=== PATIENT | male | born 1935 | race Caucasian/White ===

== ENCOUNTER 2017-06-17 09:17 | Inpatient (IN) | payer OTHER, MEDICARE ==
[~2017-06-17] VITALS: Ht 180.3 cm; Wt 95.8 kg
[~2017-06-17 09:17] MED LIST: ALEVE220 M2 PO; AMLODIPINE-ATO1 EAC8 PO; ATORVASTATIN CA40 MG PO; CARAC 0.5% TOP; CIPRO 500MG TA500 MG PO; CIPROFLOXACIN500 MG PO; EXELON1 EAC1 TOP; FLOMAX(MONOGRA0.4 MG PO; GOOD SENSE ASP325 MG PO; KEFLEX500 MG PO; LINZESS290 MC1 PO; LINZESS290 MCG PO; MASON NATURAL2000 IU PO; MOMETASONE FUROA0.11 TOP; MULTI-DAY VITA1 EACH PO; MULTIVITAMIN1 TAB PO; NORVASC 10MG10 MG PO; PRESERVISION AR1 SGL PO; PROS5 PO; RIVASTIGMINE 9.5 MG TOP; ROZEREM8 MG PO; SINEMET 25-1001 TAB PO; VITAMIN D50000 IU PO; [UNRECOGNIZED DRUG - OTHER] PO
[2017-06-17] MEDS ORDERED: EXELON1 EAC2 TOP (09:46)
[2017-06-17] MEDS ORDERED: CARBIDOPA-LEVO1 EAC7 PO (09:46)
[2017-06-17] MEDS ORDERED: ASPIRIN325 M2 PO (09:49)
[2017-06-17] MEDS ORDERED: CENTRAVITES 501 EACH PO (09:50)
[2017-06-17 09:52] LABS: ABSOLUTE BASOPHIL COUNT 0 /CUMM (0.0-0.2); ABSOLUTE EOSINOPHIL COUNT 0.1 /CUMM (0.0-0.7); ABSOLUTE GRANULOCYTE CT 12.2 /CUMM (1.4-6.5); ABSOLUTE LYMPH COUNT 1.1 /CUMM (1.2-3.4); ABSOLUTE MONOCYTE COUNT 0.9 /CUMM (0.10-0.60); BASOPHIL % 0.2 % (0.0-2.0); EOSINOPHIL % 0.4 % (0-5); HEMATOCRIT 38.5 % (42-52); MEAN CORPUSCULAR HGB 31.7 PG (27.0-31.0); MEAN CORPUSCULAR HGB CONC 34.6 G/DL (33.0-37.0); MEAN CORPUSCULAR VOLUME 91.6 FL (80.0-94.0); MEAN PLATELET VOLUME 8.2 FL (7.4-10.4); RBC DISTRIBUTION WIDTH 14.1 % (11.5-14.5); WHITE BLOOD CELL COUNT 14.3 /CUMM (4.8-10.8)
--- NOTE | 2017-06-17 09:52 | ED MVC/FALL/TRAUMA COMPLAINT ---
History of Present Illness General Chief Complaint: Fall Stated Complaint: BIBA FOR FALL Source: patient, family Exam Limitations: confusion Allergies Coded Allergies: tetanus toxoid, adsorbed (UNKNOWN 08/03/15) Reconcile Medications Amlodipine/Atorvastatin (Amlodipine-Atorvast 5-40 MG) 1 EACH TABLET 1 TAB PO DAILY HEART HEALTH (Reported) Aspirin (Aspirin*) 325 MG TABLET 1 TAB PO DAILY HEART HEALTH (Reported) Carbidopa/Levodopa (Carbidopa-Levodopa 25-100 Tab) 25 MG-100 MG TABLET 1 TAB PO TID HEART HEALTH (Reported) Multivitamin W/Iron, Minerals (Centravites 50 Plus) 1 EACH TABLET 1 TAB PO DAILY VITAMIN (Reported) Rivastigmine (Exelon) 13.3 MG/24 HOUR PATCH.TD24 1 PAT TOP DAILY PARKINSONS ( Reported) Triage Note: BIBA FROM HOME S/P FALL YESTERDAY AT 12PM. PER FAMILY PATIENT REFUSED TO GET UP AND REFUSED HELP BY OUTSIDE SERVICES. THIS AM VISITING NURSE/AID CAME TO THE HOUSE AND FOUND PATIENT FACEDOWN ON 2ND FLOOR OF HOME. PATIENT DENIES PAIN OR DISCOMFORT, HX OF PARKINSONS, A/O X3, HX OF FALLS. PATIENT CHANGED INTO HOSPITAL GOWN, VITALS OBTAINED, FALL PRECAUTIONS IN PLACE. AWAITING PROVIDER EVAL. Triage Nurses Notes Reviewed? yes Onset: Gradual Duration: constant Timing: recent history Severity: moderate Severity Numbers: 5 HPI: Patient is a 81-year-old male with a past medical history of diverticulitis with colon resection history, recurrent UTIs, multiple falls, Parkinson's, who presents emergency room with concerns of a 5 day history of productive yellow cough denies weakness and fatigue her patient lives in a private residence with and which they do receive home nursing care where states that while ambulating yesterday with a walker patient had a gradual nontraumatic fall to the hallway where he was unable to get up due to generalized weakness was unable to get patient up which nursing care evaluate patient at home today and called 911. Patient denies any pain however he does state that pain did occur in his abdomen approximate 3-5 days ago. Patient can tolerate by mouth with no change in symptoms last bowel movement was in the last 24 hours no blood no melena noted. Patient denies any chest pain arm pain jaw pain nausea vomiting headache Patient's was admitted in [place] in mid March for concerns of a fall delirium etiology from UTI. (Ramesh Santiago) Vital Signs & Intake/Output Vital Signs & Intake/Output Vital Signs Date Time Temp Pulse Resp B/P B/P Pulse O2 O2 Flow FiO2 Mean Ox Delivery Rate 06/17 1605 68 18 169/62 94 Room Air 06/17 1430 67 20 141/73 96 Room Air 06/17 1326 98.1 68 20 142/70 95 Room Air 06/17 1216 97.9 06/17 1111 71 20 141/66 99 Room Air 06/17 0948 Room Air Room Air 06/17 0920 98.1 76 16 144/67 95 Room Air (Emy GUZMAN,Jose Miguel Ramos) Past History Travel History Traveled to [place] past 21 day No Medical History Any Pertinent Medical History? see below for history Neurological: Parkinson's disease EENT: macular degeneration Cardiovascular: hypertension, hyperlipidemia Respiratory: NONE Gastrointestinal: diverticulitis Hepatic: NONE Renal: NONE Musculoskeletal: osteoarthritis Psychiatric: NONE Endocrine: NONE Blood Disorders: NONE Cancer(s): NONE WEDDING PLANNER/Reproductive: NONE Pneumonia Vaccine: 11/19/11 Influenza Vaccine: 11/18/14 Surgical History Surgical History: COLON RESECTION Psychosocial History Who do you live with Significant Other Services at Home None What is your primary language Prydeinig Tobacco Use: Quit >30 days ago ETOH Use: occasional use Illicit Drug Use: denies illicit drug use Family History Hx Contributory? No (Ramesh Santiago) Review of Systems Review of Systems Constitutional: Reports: see HPI, malaise, weakness. Eyes: Reports: no symptoms. Ears, Nose, Throat, Mouth: Reports: no symptoms. Respiratory: Reports: see HPI, cough. Cardiovascular: Reports: no symptoms. Gastrointestinal/Abdominal: Reports: no symptoms. Genitourinary: Reports: no symptoms. Musculoskeletal: Reports: no symptoms. Skin: Reports: no symptoms. Neurological/Psychological: Reports: no symptoms. All Other Systems: Reviewed and Negative (Ramesh Santiago) Physical Exam Physical Exam General Appearance: alert, lethargic Head: atraumatic Eyes: Bilateral: normal appearance, PERRL, EOMI. Ears, Nose, Throat, Mouth: hearing grossly normal, moist mucous membrane, Tympanic normal Neck: normal inspection, supple Respiratory: no respiratory distress, crackles Cardiovascular: regular rate/rhythm Gastrointestinal: normal bowel sounds, soft, non-tender Extremities: normal range of motion Neurologic/Psych: no motor/sensory deficits, awake, disoriented x 3 Skin: intact, normal color, warm/dry Core Measures ACS in differential dx? No CVA/TIA Diagnosis No Sepsis Present: No Sepsis Focused Exam Completed? No (Kathryn PALAFOX,Ramesh) Progress Differential Diagnosis: abd injury, C/T/L spine injury, ext injury, ICH, pelvis injury, pnemothorax, spinal cord injury Diagnostic Imaging: Viewed by Me: CT Scan. Radiology Impression: SEE COMMENTS Initial ED EK BPM,RBBB Comments: PATIENT: EDDIE LEAVITT PRESENT AGE: 81 PATIENT ACCOUNT NO: [id number] : 36 LOCATION: [facility] ORDERING PHYSICIAN: Ramesh PALAFOX SERVICE DATE: 06/17/17 EXAM TYPE: CAT - CT ABD & PELVIS W IV CONTRAST; CTA CHEST-PULMONARY EMBOLISM EXAMINATION: CTA CHEST CT ABDOMEN AND PELVIS WITH CONTRAST CLINICAL INFORMATION: Cough, PNA and hemoptysis. COMPARISON: CT abdomen and pelvis 08/03/2015. Chest x-ray 01/07/2015. TECHNIQUE: 5 mm thin axial and reformatted 3 mm thin coronal, sagittal and oblique images of the chest were obtained following IV 100 mL [address]iray 320. Subsequently CT abdomen and pelvis imaging was performed with 5 mm axial and reconstructed 3 mm thin sagittal and coronal images. DLP: 1572 mGy-cm FINDINGS: CHEST: There is good opacification of the pulmonary artery and its branches without any intraluminal filling defect or narrowing. The thoracic aorta is of normal caliber. Origins of thoracic aortic branches are widely patent except for mild atherosclerosis. The heart size is normal. There is moderate pericardial fat. No pericardial effusion seen. No abnormal size mediastinal or hilar lymph nodes. There are punctate calcifications in subcarinal space likely calcified lymph nodes. The thyroid lobes are symmetrical and normal. There is no pleural effusion or pleural thickening. Bilateral axilla are unremarkable. The chest wall appears unremarkable. The lungs are expanded without any acute pneumonic consolidation or mass. Focal dependent atelectatic changes are seen in both lower lobe posterior basal segments. No pulmonary nodule or mass seen. ABDOMEN AND PELVIS: There are gallstones. No gallbladder wall thickening seen. The liver, spleen and pancreas appear unremarkable. The common bile duct is not visualized and nondilated. There is moderate stool seen throughout the colon without significant distention. There is an anastomotic suture line within the high sigmoid colon with the lumen appearing patent. However there is moderate stool seen scattered throughout the entire colon including the sigmoid colon consistent with moderate scattered diverticuli seen throughout the colon without diverticulitis. The small bowel loops are nondilated. The stomach is nondistended. A small hiatal hernia is suspected. No free air or free fluid seen. There are mild atherosclerotic changes of abdominal aorta without aneurysmal dilatation. No retroperitoneal or pelvic large or bulky lymph nodes seen. The abdominal wall appears unremarkable. Imaging through the pelvis reveals unremarkable urinary bladder. There is moderate prostate enlargement encroaching through the base of the bladder. No bladder wall thickening noted. A prominent left inguinal hernia containing intraperitoneal fat is noted. Bone windows reveal moderate spondylosis lower dorsal spine. No lytic or sclerotic process seen. Mild bilateral facet joint hypertrophy seen at L3-L4 and L4-L5 disc levels. IMPRESSION: No evidence of aortic aneurysm or dissection. No lung nodule, mass or consolidation seen. Moderate constipation. The anastomotic site sigmoid/descending colon junction is widely patent. There is scattered colonic diverticuli without any diverticulitis. No bowel obstruction seen. Gallstones without wall thickening. No major change since 2015. DICTATED BY: Janneth GUZMAN,Seun DATE/TIME DICTATED:06/17/171227 EDUCATIONAL AIDE:DEMI DATE/TIME TRANSCRIBED:06/17/171227 CONFIDENTIAL, DO NOT COPY WITHOUT APPROPRIATE AUTHORIZATION. <Electronically signed in Other Vendor System> SIGNED BY: Janneth GUZMAN,Seun 06/17/17 1415 (Ramesh Santiago) Plan of Care: Orders Procedure Date/time Status Heart Healthy Diet 06/18 B Active Patient Data 06/17 1610 Active Misc Message 06/17 1607 Active ED Holding Orders 06/17 1607 Active Admit to inpatient 06/17 1607 Active Vital Signs 06/17 1607 Active Code Status 06/17 1607 Active BLOOD CULTURE 06/17 1032 Active CULTURE,URINE 06/17 1031 Active RAPID VIRAL INFLUENZA A 06/17 1022 Complete Add-on Test (ER Only) 06/17 1021 Active Intake & Output 06/17 0948 Active LACTIC ACID 06/17 0845 Complete B-TYPE NATRIURETIC PEP (BNP) 06/17 0945 Complete URINALYSIS 06/17 0944 Complete TROPONIN LEVEL 06/17 0944 Complete COMPREHENSIVE METABOLIC PANEL 06/17 0944 Complete CREATINE PHOSPHOKINASE 04/30 0944 Complete CBC WITHOUT DIFFERENTIAL 04/30 0944 Complete EKG 06/17 0936 Active Laboratory Tests 06/17/17 1430: Urinalysis LIGHT H, Urine Color YEL, Urine Clarity HAZY H, Urine pH 6.0, Ur Specific [place] 1.025, Urine Protein NEG, Urine Ketones NEG, Urine Nitrite NEG, Urine Bilirubin NEG, Urine Urobilinogen 0.2, Ur Leukocyte Esterase NEG, Ur Microscopic SEDIMENT EXAMINED, Urine RBC 3-5, Urine WBC 1-3 H, Ur Epithelial Cells RARE, Urine Bacteria FEW H, Hyaline Casts RARE H, Granular Casts RARE H , Urine Mucus MOD H, Urine Hemoglobin TRACE-LYSED H, Urine Glucose NEG 06/17/17 0945: Anion Gap 8, Estimated GFR > 60, BUN/Creatinine Ratio 22.9, Glucose 113 H, Lactic Acid 1.0, Calcium 8.7, Total Bilirubin 1.2, AST 28, ALT 9 L, Alkaline Phosphatase 66, Creatine Kinase 354 H, Troponin I < 0.01, Omm-P-Wohqcnowqoe Pept 223 H, Total Protein 6.6, Albumin 3.6, Globulin 3.0, Albumin/Globulin Ratio 1.2, CBC w Diff NO MAN DIFF REQ, RBC 4.20 L, MCV 91.6, MCH 31.7 H, MCHC 34.6, RDW 14.1, MPV 8.2, Gran % 85.2 H, Lymphocytes % 7.7 L, Monocytes % 6.5, Eosinophils % 0.4, Basophils % 0.2, Absolute Granulocytes 12.2 H, Absolute Lymphocytes 1.1 L, Absolute Monocytes 0.9 H, Absolute Eosinophils 0.1, Absolute Basophils 0 Microbiology 06/17 1430 URINE ROUT: Urine Culture - RECD 06/17 1215 BLOOD: Blood Culture - RECD 06/17 1055 BLOOD: Blood Culture - RECD 06/17 1038 NASOPHARYN: Influenza Virus A & B Rapid Smear - COMP Differential diagnosis include TIA CVA sepsis UTI bronchitis pneumonia diverticulitis On initial examination patient is noted to be lethargic Patient was able to follow all commands however was disoriented 3 in which family member state that he usually does know the year however the month and data week he has difficulty remembering at baseline. Patient has no overt findings of intra-abdominal acute abnormality, no concerns of overt ammonia for urinary tract infection however cultures are pending, DUE TO history of present illness and exam findings patient does have concerns of bronchitis [place] received CT angiogram due to patient showing productive cough with mild blood-tinged however no concerned a pulmonary embolism upon admission. Due to patient's significant and profound weakness and fall history that outpatient therapy would be medically harmful at this time. Discussed admission with family members and patient were aware and have no questions (Ramesh Santiago) (Emy GUZMAN,Jose Miguel Ramos) Departure Departure Disposition: STILL A PATIENT Condition: Stable Clinical Impression Primary Impression: Bronchitis Secondary Impressions: Weakness Referrals: Bong GUZMAN,Ryder Blanchard (PCP/Family) Departure Forms: Customer Survey General Discharge Information Admission Note Spoke With: Bib GUZMAN,Anthony Johnson Documentation of Exam: Documentation of any treatments & extenuating circumstances including Concerns Regarding Discharge (functional status, medication knowledge or non-compliance, living conditions, etc.) that warrant an admission rather than observation: [ Patient requires IV fluids, IV antibiotics, repeat labs, case management consultation, physical therapy consultation, possible short-term rehabilitation ] blood cultures and urine culture pending (Ramesh Santiago) PA/ICE SKATER Co-Sign Statement Statement: ED Attending supervision documentation- [X] I saw and evaluated the patient. I have also reviewed all the pertinent lab results and diagnostic results. I agree with the findings and the plan of care as documented in the PA's/ICE SKATER's documentation. Patient presents for evaluation of possible injury sustained status post fall. Patient apparently was found today on the floor unable to get up. Physical examination reveals no head trauma and heart and lung examinations were unremarkable save for mild crackles. [] I have reviewed the ED Record and agree with the PA's/ICE SKATER's documentation. [] Additions or exceptions (if any) to the PAs/ICE SKATER's note and plan are summarized below: [] (Emy GUZMAN,Jose Miguel Ramos)
[2017-06-17 10:09] LABS: GRANULOCYTE % 85.2 % (42.2-75.2); PLATELET COUNT 252 /CUMM (130-400)
--- NOTE | 2017-06-17 14:15 | CT SCAN REPORT ---
EXAMINATION: CTA CHEST CT ABDOMEN AND PELVIS WITH CONTRAST CLINICAL INFORMATION: Cough, PNA and hemoptysis. COMPARISON: CT abdomen and pelvis 08/03/2015. Chest x-ray 01/07/2015. TECHNIQUE: 5 mm thin axial and reformatted 3 mm thin coronal, sagittal and oblique images of the chest were obtained following IV 100 mL Optiray [address]. Subsequently CT abdomen and pelvis imaging was performed with 5 mm axial and reconstructed 3 mm thin sagittal and coronal images. DLP: 1572 mGy-cm FINDINGS: CHEST: There is good opacification of the pulmonary artery and its branches without any intraluminal filling defect or narrowing. The thoracic aorta is of normal caliber. Origins of thoracic aortic branches are widely patent except for mild atherosclerosis. The heart size is normal. There is moderate pericardial fat. No pericardial effusion seen. No abnormal size mediastinal or hilar lymph nodes. There are punctate calcifications in subcarinal space likely calcified lymph nodes. The thyroid lobes are symmetrical and normal. There is no pleural effusion or pleural thickening. Bilateral axilla are unremarkable. The chest wall appears unremarkable. The lungs are expanded without any acute pneumonic consolidation or mass. Focal dependent atelectatic changes are seen in both lower lobe posterior basal segments. No pulmonary nodule or mass seen. ABDOMEN AND PELVIS: There are gallstones. No gallbladder wall thickening seen. The liver, spleen and pancreas appear unremarkable. The common bile duct is not visualized and nondilated. There is moderate stool seen throughout the colon without significant distention. There is an anastomotic suture line within the high sigmoid colon with the lumen appearing patent. However there is moderate stool seen scattered throughout the entire colon including the sigmoid colon consistent with moderate scattered diverticuli seen throughout the colon without diverticulitis. The small bowel loops are nondilated. The stomach is nondistended. A small hiatal hernia is suspected. No free air or free fluid seen. There are mild atherosclerotic changes of abdominal aorta without aneurysmal dilatation. No retroperitoneal or pelvic large or bulky lymph nodes seen. The abdominal wall appears unremarkable. Imaging through the pelvis reveals unremarkable urinary bladder. There is moderate prostate enlargement encroaching through the base of the bladder. No bladder wall thickening noted. A prominent left inguinal hernia containing intraperitoneal fat is noted. Bone windows reveal moderate spondylosis lower dorsal spine. No lytic or sclerotic process seen. Mild bilateral facet joint hypertrophy seen at L3-L4 and L4-L5 disc levels. IMPRESSION: No evidence of aortic aneurysm or dissection. No lung nodule, mass or consolidation seen. Moderate constipation. The anastomotic site sigmoid/descending colon junction is widely patent. There is scattered colonic diverticuli without any diverticulitis. No bowel obstruction seen. Gallstones without wall thickening. No major change since 2016.
--- NOTE | 2017-06-17 15:50 | History & Physical ---
[facility] 1549: General Information and HPI MD Statement: I have seen and personally examined EDDIE LEAVITT and documented this H&P. The patient is a 81 year old M who presented with a patient stated chief complaint of [fall]. Source of Information: patient, family Exam Limitations: poor historian History of Present Illness: Patient is a 81-year-old male with a past medical history of diverticulitis with colon resection, recurrent UTIs, multiple falls, Parkinsonism with dementia was brought in by ambulance with history of fall. Collateral history obtained from patient's was at the bedside. According to her, patient was in his usual state of health until last night, the patient walked up to his bedroom in first- floor and used his bathroom. And on the way back to his bedroom his legs gave away and fell on the floor. He denied any loss of consciousness, seizure-like activity, numbness, tingling sensation, palpitation, headache, nausea, vomiting, abdominal pain, chest pain, shortness of breath. According to the patient has usually 1 to 2 fall daily and she was able to get him up back to his position. But yesterday patient refused to get up and wouldn't follow commands. At baseline he is alert and oriented 1. Patient's decided to leave them in the floor for the night. She woke up at 8:00 in the morning. By that time His health aide came who suggested to call 911 for the same. At baseline patient needs help with dressing, medication, eating, transportation. Allergies/Medications Allergies: Coded Allergies: tetanus toxoid, adsorbed (UNKNOWN 08/03/15) Compliance With Home Meds: GOOD Past History Travel History Traveled to [place] past 21 day No Medical History Neurological: Parkinson's disease EENT: macular degeneration Cardiovascular: hypertension, hyperlipidemia Respiratory: NONE Gastrointestinal: diverticulitis Hepatic: NONE Renal: NONE Musculoskeletal: osteoarthritis Psychiatric: NONE Endocrine: NONE Blood Disorders: NONE Cancer(s): NONE FEED MANAGEMENT ADVISOR/Reproductive: NONE Surgical History Surgical History: COLON RESECTION Past Family/Social History Psychosocial History Where do you live? Home Who Do You Live With? spouse Services at Home: None Primary Language: Pashto Smoking Status: Never Smoked ETOH Use: occasional use Illicit Drug Use: denies illicit drug use Functional Ability ADLs Needs Assist: eating. Ambulation: walker IADLs Needs Assist: shopping, housework, finances, food prep, transportation, medication admin. Review of Systems Review of Systems Constitutional: Reports: no symptoms. Cardiovascular: Reports: no symptoms. Respiratory: Reports: cough, sputum production. GI: Reports: no symptoms. Genitourinary: Reports: no symptoms. Musculoskeletal: Reports: no symptoms. Exam & Diagnostic Data Last 24 Hrs of Vital Signs/I&O Vital Signs Date Time Temp Pulse Resp B/P B/P Pulse O2 O2 Flow FiO2 Mean Ox Delivery Rate 06/17 1605 68 18 169/62 94 Room Air 06/17 1430 67 20 141/73 96 Room Air 06/17 1326 98.1 68 20 142/70 95 Room Air 06/17 1216 97.9 06/17 1111 71 20 141/66 99 Room Air 06/17 0948 Room Air Room Air 06/17 0920 98.1 76 16 144/67 95 Room Air Intake & Output 06/17 1600 06/17 0800 06/17 0000 Intake Total 0 Output Total Balance 0 Intake, Oral 0 Patient 230 lb Weight Weight Reported by Patient Measurement Method Physical Exam General Appearance Alert, Oriented X3, Cooperative, No Acute Distress HEENT PERRLA, EOMI, Mucous Membr. moist/pink Neck Supple, No JVD Cardiovascular Regular Rate, Normal S1, Normal S2, No Murmurs Lungs left side dec breath sounds Abdomen Soft, No Tenderness, No Hepatospenomegaly Neurological Normal Tone, Sensation Intact, dec both legs and arms Extremities No Edema Last 24 Hrs of Labs/Evans: Laboratory Tests 06/17/17 1430: Urinalysis LIGHT H, Urine Color YEL, Urine Clarity HAZY H, Urine pH 6.0, Ur Specific [place] 1.025, Urine Protein NEG, Urine Ketones NEG, Urine Nitrite NEG, Urine Bilirubin NEG, Urine Urobilinogen 0.2, Ur Leukocyte Esterase NEG, Ur Microscopic SEDIMENT EXAMINED, Urine RBC 3-5, Urine WBC 1-3 H, Ur Epithelial Cells RARE, Urine Bacteria FEW H, Hyaline Casts RARE H, Granular Casts RARE H , Urine Mucus MOD H, Urine Hemoglobin TRACE-LYSED H, Urine Glucose NEG 06/17/17 0945: Anion Gap 8, Estimated GFR > 60, BUN/Creatinine Ratio 22.9, Glucose 113 H, Lactic Acid 1.0, Calcium 8.7, Total Bilirubin 1.2, AST 28, ALT 9 L, Alkaline Phosphatase 66, Creatine Kinase 354 H, Troponin I < 0.01, Rqu-L-Eicatozskpv Pept 223 H, Total Protein 6.6, Albumin 3.6, Globulin 3.0, Albumin/Globulin Ratio 1.2, CBC w Diff NO MAN DIFF REQ, RBC 4.20 L, MCV 91.6, MCH 31.7 H, MCHC 34.6, RDW 14.1, MPV 8.2, Gran % 85.2 H, Lymphocytes % 7.7 L, Monocytes % 6.5, Eosinophils % 0.4, Basophils % 0.2, Absolute Granulocytes 12.2 H, Absolute Lymphocytes 1.1 L, Absolute Monocytes 0.9 H, Absolute Eosinophils 0.1, Absolute Basophils 0 Microbiology 06/17 1430 URINE ROUT: Urine Culture - RECD 06/17 1215 BLOOD: Blood Culture - RECD 06/17 1055 BLOOD: Blood Culture - RECD 06/17 1038 NASOPHARYN: Influenza Virus A & B Rapid Smear - COMP Diagnostic Data Other Results ct abd and pelvis No evidence of aortic aneurysm or dissection. No lung nodule, mass or consolidation seen. Moderate constipation. The anastomotic site sigmoid/descending colon junction is widely patent. There is scattered colonic diverticuli without any diverticulitis. No bowel obstruction seen. Gallstones without wall thickening. No major change since 2016. Assessment/Plan Assessment: Patient is a 81-year-old male with a past medical history of diverticulitis with colon resection, recurrent UTIs, multiple falls, Parkinsonism with dementia was brought in by ambulance with history of fall. Patient was last admitted in 2014 for UTI/delirium. Admission vitals She temperature 97.9, pulse rate 68, respiratory 20, blood pressure 142/70, saturating 95 at room air Admission labs W BC 14.3, hemoglobin 13.3, hematocrit 38.5, platelet count 252, sodium 141, potassium 4.1, BUN 16, creatinine 0.7, glucose 113, calcium 8.7, lactic acid 1, AST 28, ALT 9, creatinine kinase 354, troponin 0.01, proBNP 223. Rapid influenza negative. Urinalysis-negative Imaging CT abdomen and pelvis/CTA No evidence of aortic aneurysm or dissection. No lung nodule, mass or consolidation seen. Moderate constipation. The anastomotic site sigmoid/descending colon junction is widely patent. There is scattered colonic diverticuli without any diverticulitis. No bowel obstruction seen. Gallstones without wall thickening. No major change since 2016. ED treatment Normal saline bolus 500, azithromycin once, ceftriaxone 1 g once, Pending blood culture, urine culture Home meds Amlodipine 5 mg-was stopped in mar Atorvastatin 40 mg- was stopped in March Aspirin 325 daily Sinemet 25-100 tid rivasstigmine Patch daily Assessment and plan 1. Fall 2. Bronchitis * admit in gen med. * fall precaution.vitals every shift. * continue home meds * physical therapy and occupational therapy consult. * trc nebulisation. Follow off antibiotics. Follow blood culture, urine culture, sputum culture * robitussin cough syrup as needed. * mucinex. * diet-regular * dvt rophylaxis-lovenox * code-dnr.[email or web address] As Ranked By This Provider Problem List: 1. Bronchitis 2. Parkinsons Core Measures/Misc (11/04) Acute Coronary Syndrome ACS Diagnosis: No Congestive Heart Failure Congestive Heart Failure Diagnosis No Cerebrovascular Accident CVA/TIA Diagnosis: No VTE (View Protocol) VTE Risk Factors Age>40 No Mechanical VTE Prophylaxis d/t Other No VTE Pharm Prophylaxis d/t Other Sepsis (View protocol) Sepsis Present: No Gabriel Mccartneycarlos 06/17/17 1820: General Information and HPI Allergies/Medications Home Med list Aspirin (Aspirin*) 325 MG TABLET 1 TAB PO DAILY HEART HEALTH (Reported) Azithromycin 500 MG TABLET 500 MG PO DAILY bronchitis Carbidopa/Levodopa (Carbidopa-Levodopa 25-100 Tab) 25 MG-100 MG TABLET 1 TAB PO Q6 PARKINSONS (Reported) Melatonin 5 MG TABLET 1 MG PO AT BEDTIME PRN INSOMNIA Multivitamin W/Iron, Minerals (Centravites 50 Plus) 1 EACH TABLET 1 TAB PO DAILY VITAMIN (Reported) Rivastigmine (Exelon) 13.3 MG/24 HOUR PATCH.TD24 1 PAT TOP DAILY PARKINSONS ( Reported) Attending MD Review Statement Attending Statement Attending MD Statement: examined this patient, discuss w/resident/PA/PEDIATRIC ASSOCIATE, agreed w/resident/PA/PEDIATRIC ASSOCIATE, discussed with family, reviewed EMR data (avail) Attending Assessment/Plan: 81-year-old male with a PMH of diverticulitis with colon resection, recurrent UTIs, multiple falls, Parkinsonism with dementia was brought in by ambulance with c/c of fall at home. History was mostly obtained by the pts at bedside. Last night around 7 pm pt was going back to bed from the bathroom and fell by the side of the bed. According to pts pt falls 1-2 times every day and is usually able to get back into bed with assistance. Yesterday pt was unable to get back into bed, so gave him a blanket and pillow and he slept by the side of bed at night. When the VNS came to the house in the am she called EMS and pt was brought to the Er. Pt's was recently sick with URI symptoms about 1-2 weeks ago and then pt started getting those symptoms over the last few days. Pt complaining of cough. CTA chest and CT abdomen/pelvis done in ER showed now no findings to suggest pneumonia or PE or abdominal pathology to explain his high wbc. His ck is mildly elevated. Ac bronchitis with leukocytosis- WBC of 14. 3 with N- 85%, Will f.u on UA. ER gave abx for possible bronchitis. Will cont with iv zithromax for now. Will f/u on UA. Will recheck wbc in am. d/w pt and pts at bedside the care plan. Lenny GUZMAN,[facility] 06/17/172033: Resident Review Statement Resident Statement: examined this patient, discussed with internet architect, agreed with internet architect, discussed with family, discussed with nursing Other Findings: Patient is 82 year old male with past medical history significant for parkinsonism, infection and used delirium presented to ED after a fall. Patient had a fall yesterday, did he want to move and stayed on the floor for 12 hours. Patient denied any chest pain, palpitation, shortness of breath, abdominal pain, nausea or vomiting, diarrhea or constipation. Patient brought in by ambulance after the morning meds came and found him on the floor, present at home and try to help but patient refused help. Patient has new onset of productive cough , history of sick contact . Problem list Bronchitis CK elevation status post fall Bronchitis Parkinsonism Plan Admit to general medical floor Vitals every shift Will hold off any further fluid Repeat C K in a.m. Start azithromycin Repeat CBC in a.m. PT evaluation Case management evaluation Continue home medication Patient is on the cystic main patch daily 13.3 patient should bring this medication from home in a.m. DVT prophylaxis Lovenox and Alps
--- NOTE | 2017-06-17 18:59 | Admission Certification ---
Admission Certification Certification Statement - As attending physician, I certify that at the time of - admission, based on clinical presentation, severity of - symptoms, need for further diagnostic testing and - therapeutic interventions, and risk of adverse outcomes - without in-hospital treatment, in my clinical assessment, - this patient requires an acute hospital stay for a minimum - of two nights or longer. I have also considered psychsocial - factors such as support system, advanced age, financial - issues, cognitive issues, and failed out-patient treatments, - past re-admission history, safety of patient, and lack of - compliance as applicable. Specific rationale supporting this admission is: ? UTI/ Acute bronchitis with fall
[2017-06-17 22:07] VITALS: BP 126/60
--- NOTE | 2017-06-18 04:54 | PN- Housestaff ---
Subjective Follow-up For: Fall, bronchitis Complaints: no complaints Subjective: Patient seen and examined at bedside. Overnight patient was mildly agitated and was put on [place]. He is alert and oriented 1. Pleasantly confused. Denies chest pain, shortness of breath, pain in legs, chest pain. Review of Systems Constitutional: Reports: no symptoms, see HPI. Objective Last 24 Hrs of Vital Signs/I&O Vital Signs Date Time Temp Pulse Resp B/P B/P Pulse O2 O2 Flow FiO2 Mean Ox Delivery Rate 06/18 08 99.1 06/18 0701 100.2 06/18 06 100.2 82 20 140/66 93 Room Air 06/17 2207 98.0 86 20 126/60 94 Room Air 06/17 2000 Room Air 06/17 1605 68 18 169/62 94 Room Air 06/17 1430 67 20 141/73 96 Room Air 06/17 1326 98.1 68 20 142/70 95 Room Air Intake & Output 06/18 1600 06/18 0800 06/18 0000 Intake Total 360 240 Output Total 400 Balance -40 240 Intake, Oral 360 240 Output, Urine 400 Patient 211 lb Weight Weight Bed scale Measurement Method Physical Exam General Appearance: Alert, Cooperative, No Acute Distress Cardiovascular: Regular Rate, Normal S1, Normal S2, No Murmurs Lungs: Clear to Auscultation Abdomen: Soft, No Tenderness, No Hepatospenomegaly Neurological: Strength at 5/5 X4 Ext, Normal Tone, Sensation Intact, Cranial Nerves 3-12 NL Current Medications: Current Medications Sig/Ronald Start time Last Medication Dose Route Stop Time Status Admin Acetaminophen 650 MG Q6P PRN 06/17 1915 AC 06/18 PO 0701 Aspirin 325 MG DAILY 06/18 09 AC 06/18 PO 0847 Azithromycin 500 MG DAILY 06/18 0904 AC 06/18 PO 06/21 0901 1035 Azithromycin 500 MG DAILY 06/18 09 CAN Sodium Chloride 250 ML IV Azithromycin 500 MG ONCE ONE 06/17 1430 DC 06/17 Sodium Chloride 250 ML IV 06/17 1529 1443 Carbidopa/Levodopa 1 TAB Q6 06/17 2359 AC 06/18 PO 1155 Ceftriaxone Sodium 0 .STK-MED ONE 06/17 1528 DC .ROUTE Ceftriaxone Sodium 1,000 MG ONCE ONE 06/17 1515 DC 06/17 IV 06/17 1516 1752 Enoxaparin Sodium 40 MG DAILY 06/17 1930 06/18 [place] 0847 Rivastigmine 13.3 MG DAILY 06/18 1000 06/18 [facility] 1035 Sodium Chloride 500 ML BOLUS ONE 06/17 1300 DC 06/17 IV 06/17 1359 1305 Last 24 Hrs of Lab/Evans Results Last 24 Hrs of Labs/Mics: Laboratory Tests 06/18/17 0705: Creatine Kinase 337 H, CBC w Diff NO MAN DIFF REQ, RBC 4.10 L, MCV 91.1, MCH 31.1 H, MCHC 34.1, RDW 13.9, MPV 9.1, Gran % 83.9 H, Lymphocytes % 8.2 L, Monocytes % 7.0, Eosinophils % 0.8, Basophils % 0.1, Absolute Granulocytes 10.8 H, Absolute Lymphocytes 1.1 L, Absolute Monocytes 0.9 H, Absolute Eosinophils 0.1, Absolute Basophils 0 06/17/17 1430: Urinalysis LIGHT H, Urine Color YEL, Urine Clarity HAZY H, Urine pH 6.0, Ur Specific [place] 1.025, Urine Protein NEG, Urine Ketones NEG, Urine Nitrite NEG, Urine Bilirubin NEG, Urine Urobilinogen 0.2, Ur Leukocyte Esterase NEG, Ur Microscopic SEDIMENT EXAMINED, Urine RBC 3-5, Urine WBC 1-3 H, Ur Epithelial Cells RARE, Urine Bacteria FEW H, Hyaline Casts RARE H, Granular Casts RARE H , Urine Mucus MOD H, Urine Hemoglobin TRACE-LYSED H, Urine Glucose NEG Microbiology 06/18 0432 LOWER RESP: Respiratory Culture - COLB 06/19 431 LOWER RESP: Gram Stain - COLB 06/17 1430 URINE ROUT: Urine Culture - RES Assessment/Plan Assessment: Patient is a 81-year-old male with a past medical history of diverticulitis with colon resection, recurrent UTIs, multiple falls, Parkinsonism with dementia was brought in by ambulance with history of fall. Patient was last admitted in 2014 for UTI/delirium. Assessment and plan * Fall * Bronchitis * Fall precaution. Physical therapy and occupational therapy consult. Continue TRC nebulization. Patient is on azithromycin and had a MAXIMUM TEMPERATURE of 100.2. We will continue antibiotics for now. Follow up urine, sputum, blood culture. * Patient is on rivasstigmine Patch daily patient brought the medication from home. We will send it to the pharmacy for confirmation.. Problem List: 1. Bronchitis 2. Fall Pain Ratin Pain Location: NONE Pain Goal: Remain pain free Pain Plan: TYLENOL Tomorrow's Labs & Rationales: JIMBO LAUGHLIN
[2017-06-18 06:20] VITALS: BP 140/66
[2017-06-18 09:08] LABS: ABSOLUTE BASOPHIL COUNT 0 /CUMM (0.0-0.2); ABSOLUTE EOSINOPHIL COUNT 0.1 /CUMM (0.0-0.7); ABSOLUTE GRANULOCYTE CT 10.8 /CUMM (1.4-6.5); ABSOLUTE LYMPH COUNT 1.1 /CUMM (1.2-3.4); ABSOLUTE MONOCYTE COUNT 0.9 /CUMM (0.10-0.60); BASOPHIL % 0.1 % (0.0-2.0); EOSINOPHIL % 0.8 % (0-5); GRANULOCYTE % 83.9 % (42.2-75.2); HEMATOCRIT 37.3 % (42-52); MEAN CORPUSCULAR HGB 31.1 PG (27.0-31.0); MEAN CORPUSCULAR HGB CONC 34.1 G/DL (33.0-37.0); MEAN CORPUSCULAR VOLUME 91.1 FL (80.0-94.0); MEAN PLATELET VOLUME 9.1 FL (7.4-10.4); PLATELET COUNT 239 /CUMM (130-400); RBC DISTRIBUTION WIDTH 13.9 % (11.5-14.5)
[2017-06-18 10:28] LABS: WHITE BLOOD CELL COUNT 12.9 /CUMM (4.8-10.8)
--- NOTE | 2017-06-18 11:05 | PN- Att Addend ---
Attending Addendum Attending Brief Note Patient seen and examined, he could not clinic it was secondary to having advanced dementia. Vital Signs Date Time Temp Pulse Resp B/P B/P Pulse O2 O2 Flow FiO2 Mean Ox Delivery Rate 06/18 0808 99.1 06/18 0701 100.2 06/18 0620 100.2 82 20 140/66 93 Room Air 06/17 2207 98.0 86 20 126/60 94 Room Air 06/17 2000 Room Air 06/17 1605 68 18 169/62 94 Room Air 06/17 1430 67 20 141/73 96 Room Air 06/17 1326 98.1 68 20 142/70 95 Room Air 06/17 1216 97.9 06/17 1111 71 20 141/66 99 Room Air on exam; awake, nad. cv; s1,s2 rrr resp; clear abd; soft, nt, bs+ ext; no edema Laboratory Tests 06/18 06/17 0705 1430 Chemistry Creatine Kinase (55 - 170 U/L) 337 H Hematology CBC w Diff NO MAN DIFF REQ WBC (4.8 - 10.8 /CUMM) 12.9 H RBC (4.70 - 6.10 /CUMM) 4.10 L Hgb (14.0 - 18.0 G/DL) 12.7 L Hct (42 - 52 %) 37.3 L MCV (80.0 - 94.0 FL) 91.1 MCH (27.0 - 31.0 PG) 31.1 H MCHC (33.0 - 37.0 G/DL) 34.1 RDW (11.5 - 14.5 %) 13.9 Plt Count (130 - 400 /CUMM) 239 MPV (7.4 - 10.4 FL) 9.1 Gran % (42.2 - 75.2 %) 83.9 H Lymphocytes % (20.5 - 51.1 %) 8.2 L Monocytes % (1.7 - 9.3 %) 7.0 Eosinophils % (0 - 5 %) 0.8 Basophils % (0.0 - 2.0 %) 0.1 Absolute Granulocytes (1.4 - 6.5 /CUMM) 10.8 H Absolute Lymphocytes (1.2 - 3.4 /CUMM) 1.1 L Absolute Monocytes (0.10 - 0.60 /CUMM) 0.9 H Absolute Eosinophils (0.0 - 0.7 /CUMM) 0.1 Absolute Basophils (0.0 - 0.2 /CUMM) 0 Urines Urinalysis LIGHT H Urine Color (YEL,AMB,STR) YEL Urine Clarity (CLEAR) HAZY H Urine pH (5.0 - 8.0) 6.0 Ur Specific [place] (1.001 - 1.035) 1.025 Urine Protein (NEG,<30 MG/DL) NEG Urine Ketones (NEG) NEG Urine Nitrite (NEG) NEG Urine Bilirubin (NEG) NEG Urine Urobilinogen (0.1 - 1.0 EU/dl) 0.2 Ur Leukocyte Esterase (NEG) NEG Ur Microscopic SEDIMENT EXAMINED Urine RBC (0 - 5 /HPF) 3-5 Urine WBC (0 - 2 /HPF) 1-3 H Ur Epithelial Cells (NONE,FEW) RARE Urine Bacteria (NEG/NONE) FEW H Hyaline Casts (0/LPF) RARE H Granular Casts (NONE /LPF) RARE H Urine Mucus (FEW,NONE) MOD H Urine Hemoglobin (NEG) TRACE-LYSED H Urine Glucose (N MG/DL) NEG A/P; 81 y/o M with pmh sig for diverticulitis with colon resection, recurrent UTIs, multiple falls, Parkinsonism with dementia admitted with acute bronchitis, fall and laying on the floor all night long with the resultant rise in CPK levels. We continue IV azithromycin. Please follow the cultures. Patient has increased CPK level secondary laying down on the floor for overnight. We can hydrate gently with IV fluids. Please start gentle IV hydration. Continue other current meds. Pt on Lovenox for DVT px. Needs PT eval.
[2017-06-18 14:40] VITALS: BP 118/72
[2017-06-18 22:31] VITALS: BP 138/60
[2017-06-19 06:20] VITALS: BP 130/68
--- NOTE | 2017-06-19 07:17 | PN- Housestaff ---
Subjective Follow-up For: Fall, bronchitis Complaints: no complaints Subjective: Patient seen and examined bedside. Oriented 1. No overnight events. Denies cough, shortness of breath, chest pain. Review of Systems Constitutional: Reports: no symptoms, see HPI. Objective Last 24 Hrs of Vital Signs/I&O Vital Signs Date Time Temp Pulse Resp B/P B/P Pulse O2 O2 Flow FiO2 Mean Ox Delivery Rate 06/19 0800 Room Air 06/19 0620 99.4 71 20 130/68 92 Room Air 06/19 0217 99.7 06/19 0118 100.0 06/18 2231 98.7 74 20 138/60 95 06/18 1600 Room Air 06/18 1553 Room Air Room Air 06/18 1504 Room Air Room Air 06/18 1440 98.6 70 20 118/72 95 Intake & Output 06/19 1600 06/19 0800 06/19 0000 Intake Total 260 740 Output Total Balance 260 740 Intake, IV 20 500 Intake, Oral 240 240 Number 1 2 Bowel Movements Physical Exam General Appearance: Alert, Cooperative, No Acute Distress Skin: No Rashes, No Breakdown Cardiovascular: Regular Rate, Normal S1, Normal S2, No Murmurs Lungs: Clear to Auscultation Abdomen: Soft, No Tenderness, No Hepatospenomegaly Neurological: Normal Speech, Normal Tone, Cranial Nerves 3-12 NL Extremities: No Edema, Normal Pulses Current Medications: Current Medications Sig/Ronald Start time Last Medication Dose Route Stop Time Status Admin Acetaminophen 650 MG .STK-MED ONE 06/19 0111 DC PO 06/19 0112 Acetaminophen 650 MG Q6P PRN 06/17 1915 06/19 PO 0118 Aspirin 325 MG DAILY 06/18 09 AC 06/19 PO 0831 Azithromycin 500 MG DAILY 06/18 0904 AC 06/19 PO 06/21 0901 0831 Carbidopa/Levodopa 1 TAB Q6 06/17 2359 AC 06/19 PO 1129 Enoxaparin Sodium 40 MG DAILY 06/17 1930 AC 06/19 SC 0831 Melatonin 5 MG AT BEDTIME PRN 06/19 0100 06/19 PO 0118 Patient Medication 1 ED ONE ONE 06/19 1115 DC Teaching ED 06/19 1116 Rivastigmine 13.3 MG DAILY 06/18 1000 06/19 TOP 0831 Sodium Chloride 500 ML BOLUS ONE 06/18 1515 DC 06/18 IV 06/18 2154 1605 Last 24 Hrs of Lab/Evans Results Last 24 Hrs of Labs/Mics: Laboratory Tests 06/19/17 0905: Anion Gap 9, Estimated GFR > 60, BUN/Creatinine Ratio 21.7, Creatine Kinase 123 Microbiology 06/18 1530 LOWER RESP: Respiratory Culture - RES 06/18 1530 LOWER RESP: Gram Stain - RES Assessment/Plan Assessment: Patient is a 81-year-old male with a past medical history of diverticulitis with colon resection, recurrent UTIs, multiple falls, Parkinsonism with dementia was brought in by ambulance with history of fall. Patient was last admitted in 2014 for UTI/delirium. Assessment and plan Fall Bronchitis * Fall precaution. Physical therapy and occupational therapy on board. Patient is going to short-term rehabilitation. His repeat C-reactive protein was 125. Continue TRC nebulization. Patient is on azithromycin and had a MAXIMUM TEMPERATURE of 100.1. We will continue antibiotics for now. Follow up urine, sputum, blood culture. * Patient is on rivasstigmine Patch daily. Patient's is requesting a mild sedative. We will add melatonin. Code-DNR/DNI Diet-regular diet Problem List: 1. Fall 2. Bronchitis 3. Weakness Pain Ratin Pain Location: none Pain Goal: Remain pain free Pain Plan: tylenol Tomorrow's Labs & Rationales: none
--- NOTE | 2017-06-19 11:58 | PN- Att Addend ---
Attending Addendum Attending Brief Note Patient seen and examined, more awake toady. His is at his bedside. Pt offers no complaints. Vital Signs Date Time Temp Pulse Resp B/P B/P Pulse O2 O2 Flow FiO2 Mean Ox Delivery Rate 06/19 0800 Room Air 06/19 0620 99.4 71 20 130/68 92 Room Air 06/19 0217 99.7 06/19 0118 100.0 06/18 2231 98.7 74 20 138/60 95 06/18 1600 Room Air 06/18 1553 Room Air Room Air 06/18 1504 Room Air Room Air 06/18 1440 98.6 70 20 118/72 95 on exam; awake, nad. cv; s1,s2 rrr resp; clear abd; soft, nt, bs+ ext; no edema Laboratory Tests 06/19 904 Chemistry Sodium (137 - 145 mmol/L) 143 Potassium (3.5 - 5.1 mmol/L) 3.6 Chloride (98 - 107 mmol/L) 108 H Carbon Dioxide (22 - 30 mmol/L) 26 Anion Gap (5 - 16) 9 BUN (9 - 20 mg/dL) 13 Creatinine (0.7 - 1.2 mg/dL) 0.6 L Estimated GFR (>60 ml/min) > 60 BUN/Creatinine Ratio (7 - 25 %) 21.7 A/P; 81 y/o M with pmh sig for diverticulitis with colon resection, recurrent UTIs, multiple falls, Parkinsonism with dementia admitted with acute bronchitis, fall and laying on the floor all night long with the resultant rise in CPK levels. Will recheck the CPK levels. I added onto the labs. Patient otherwise doing well. He needs to work with physical therapy and likely will need to go to rehabilitation. We will continue the rest of his medications. Patient's requesting milder sedative. Would order some melatonin to help him sleep. Pt on lovenox for DVT px.
[2017-06-19 14:35] VITALS: BP 124/62
--- NOTE | 2017-06-19 15:02 | Discharge Summary ---
Visit Information Visit Dates Admission Date: 06/17/17 Discharge Date: 06/20/17 Hospital Course Course Attending Physician: Libby Shen MD Primary Care Physician: Ryder Woody MD Hospital Course: 81-year-old gentleman with history of diverticulitis with colon resection, recurrent UTIs, multiple falls, parkinsonism with dementia was brought in by ambulance with chief complaint of fall at home. Most of the history of the time of admission was obtained by patient's . On night prior to the admission, patient felt by the side of the bed and was unable to get back into the bed. During the fall, patient's gave him a blanket and pillow and patient slept through the night by the bedside. Following morning, [facility] came to patient's house and EMS was called and patient brought to ER. At the time of admission, patient complained of cough, but no fevers or sputum production. Also note, patient's was recently sick with upper respiratory symptoms prior to the onset of John's cough. A CTA chest was unrevealing of any pneumonic process. Negative for PE. CAT scan of the abdomen and pelvis was unremarkable for any abdominal pathology that could explain his leukocytosis. The patient was admitted with acute bronchitis. Patient was provided with total respiratory care. Nebs as needed. Inhalers and needed. Was started on IV Zithromax, and due to streak to by mouth Zithromax to complete a five-day course. Patient's white count gradually improved and patient remains stable for discharge to a retirement facility for short-term rehabilitation. Patient did have CK elevation secondary to prolonged immobilization/fall. This was corrected with gentle fluid hydration. Other medications for parkinsonism were continued. Stable for discharge to short-term rehabilitation. DNR/DNI. Lovenox for DVT prophylaxis. Regular diet. Allergies: Coded Allergies: tetanus toxoid, adsorbed (UNKNOWN 08/03/15) Disposition Summary Disposition Principal Diagnosis: Acute Bronchitis Additional Diagnosis: CK elevation status post fall Discharge Disposition: SNF Discharge Instructions General Discharge Information Code Status: Do Not Resucitate/Intubat Patient's Diet: Regular Patient's Activity: As tolerated Follow-Up Instructions/Appts: Please follow up with PCP as an outpatient. Medications at Discharge Discharge Medications: Continue taking these medications: Rivastigmine (Exelon) 13.3 MG/24 HOUR PATCH.TD24 1 Patch On the skin DAILY Qty = 30 Carbidopa/Levodopa (Carbidopa-Levodopa 25-100 Tab) 25 MG-100 MG TABLET 1 Tablet ORAL EVERY SIX HOURS Qty = 360 Aspirin (Aspirin*) 325 MG TABLET 1 Tablet ORAL DAILY Multivitamin W/Iron, Minerals (Centravites 50 Plus) 1 EACH TABLET 1 Tablet ORAL DAILY Start taking the following new medications: Melatonin (Melatonin) 5 MG TABLET 1 Milligram ORAL AT BEDTIME as needed for INSOMNIA Qty = 30 No Refills Azithromycin (Azithromycin) 500 MG TABLET 500 Milligram ORAL DAILY Qty = 3 No Refills Copies To: Bong GUZMAN,Ryder Blanchard Attending MD Review Statement Documenting Attending: Ac GUZMAN,Libby
[2017-06-19 22:18] VITALS: BP 154/74
[2017-06-20 06:00] VITALS: BP 144/60
--- NOTE | 2017-06-20 07:13 | PN- Housestaff ---
Ivis GUZMAN,Rosmery 06/20/17 0713: Subjective Follow-up For: Fall, bronchitis Complaints: no complaints Subjective: Patient seen and examined bedside. Oriented 1. No overnight events. Denies cough, shortness of breath, chest pain. Review of Systems Constitutional: Reports: no symptoms, see HPI. Objective Last 24 Hrs of Vital Signs/I&O Vital Signs Date Time Temp Pulse Resp B/P B/P Pulse O2 O2 Flow FiO2 Mean Ox Delivery Rate 06/20 06 98.9 87 18 144/60 96 Room Air 06/19 2218 98.4 77 20 154/74 97 Room Air 06/19 1600 Room Air 06/19 1435 97.3 59 20 124/62 99 Room Air Intake & Output 06/20 1600 06/20 0800 06/20 0000 Intake Total 250 250 Output Total 100 100 Balance 150 150 Intake, IV 10 10 Intake, Oral 240 240 Number 0 Bowel Movements Output, Urine 100 100 Physical Exam General Appearance: Alert, Oriented X3, Cooperative, No Acute Distress Cardiovascular: Regular Rate, Normal S1, Normal S2, No Murmurs Lungs: Clear to Auscultation Abdomen: Soft, No Tenderness, No Hepatospenomegaly Neurological: Normal Speech, Normal Tone, Sensation Intact Extremities: No Edema, Normal Pulses Current Medications: Current Medications Sig/Ronald Start time Last Medication Dose Route Stop Time Status Admin Acetaminophen 650 MG .STK-MED ONE 06/19 2134 DC PO 06/19 213 Acetaminophen 650 MG Q6P PRN 06/17 1915 AC 06/19 PO 2144 Aspirin 325 MG DAILY 06/18 0900 AC 06/20 PO 0818 Azithromycin 500 MG DAILY 06/18 0904 AC 06/20 PO 06/21 0901 0818 Carbidopa/Levodopa 1 TAB Q6 06/17 2359 AC 06/20 PO 0500 Enoxaparin Sodium 40 MG DAILY 06/17 1930 AC 06/20 SC 0818 Melatonin 5 MG AT BEDTIME PRN 06/19 0100 06/19 PO 2144 Patient Medication 1 ED ONE ONE 06/19 1115 DC Teaching ED 06/19 1116 Rivastigmine 13.3 MG DAILY 06/18 1000 AC 06/20 TOP 0818 Assessment/Plan Assessment: Patient is a 81-year-old male with a past medical history of diverticulitis with colon resection, recurrent UTIs, multiple falls, Parkinsonism with dementia was brought in by ambulance with history of fall. Patient was last admitted in 2014 for UTI/delirium. Assessment and plan Fall Bronchitis * Fall precaution. Physical therapy and occupational therapy on board. Patient is going to short-term rehabilitation. His repeat C-reactive protein was 125. Continue TRC nebulization. Patient is on azithromycin. We will continue antibiotics for now. Follow up urine, sputum, blood culture so far negative. * Patient is on rivasstigmine Patch daily. Continue melatonin for sleep. Code-DNR/DNI Diet-regular diet Pt is going to short-term rehabilitation today. Problem List: 1. Fall 2. Bronchitis Pain Ratin Pain Location: none Pain Goal: Remain pain free Pain Plan: tylenol Tomorrow's Labs & Rationales: none Libby Shen MD 06/20/17 1117: Attending MD Review Statement Attending Statement Attending MD Statement: examined this patient, discuss w/resident/PA/PSYCHOLOGIST COUNSELING, agreed w/resident/PA/PSYCHOLOGIST COUNSELING, discussed with family, reviewed EMR data (avail), discussed with nursing, discussed with case mgmt, reviewed images, amended to note Attending Assessment/Plan: Patient seen and examined, doing well. Offers no complaints. VSS. at bedside. Pt will be completing the course of azithro tomorrow. He has abed available at [facility] today and medically stable for DC.
--- NOTE | 2017-06-20 07:50 | Patient Discharge Instructions ---
Discharge Instructions General Discharge Information You were seen/treated for: Fall and bronchitis Watch for these problems: In case of falls, loss of consciousness, seizures, chest pain, shortness of breath, cough please go to the nearest emergency room Special Instructions: Your primary care provider within 1-2 weeks of discharge. Diet Continue normal diet: Yes Activity Full Activity/No Limits: No Activity Self Limited: Yes Acute Coronary Syndrome Inclusion Criteria At DC or during hospital stay patient has or had the following: ACS DIAGNOSIS No Discharge Core Measures Meds if any: Prescribed or Continued at Discharge Meds if any: NOT Prescribed or Continued at Discharge Congestive Heart Failure Inclusion Criteria At DC or during hospital stay patient has or had the following: CHF DIAGNOSIS No Discharge Core Measures Meds if any: Prescribed or Continued at Discharge Meds if any: NOT Prescribed or Continued at Discharge Cerebrovascular accident Inclusion Criteria At DC or during hospital stay patient has or had the following: CVA/TIA Diagnosis No Discharge Core Measures Meds if any: Prescribed or Continued at Discharge Meds if any: NOT Prescribed or Continued at Discharge Venous thromboembolism Inclusion Criteria VTE Diagnosis No VTE Type NONE VTE Confirmed by (Test) NONE Discharge Core Measures - Per Current guidelines, there needs to be overlap - treatment for the first 5 days of Warfarin therapy. - If discharged on Warfarin prior to 5 days of - overlap therapy, the patient will need to be - assessed for post discharge needs including - *Post discharge parental anticoagulation - *Warfarin and/or parental anticoagulation education - *Follow up date to check INR post discharge At least 5 days overlap therapy as Inpatient No Meds if any: Prescribed or Continued at Discharge Note: Overlap Therapy is Warfarin and Anticoagulant Meds if any: NOT Prescribed or Continued at Discharge
[2017-06-20] MEDS ORDERED: MELATONIN5 M7 PO (07:53)
[2017-06-20] MEDS ORDERED: AZITHROMYCIN500 M3 PO (08:51)
[2017-06-20 12:30] VITALS: BP 144/60
== END 2017-06-20 13:00 | DRG 203 ==
LOC: ERH 09:17 → ERHI 16:07 → 2NA 16:07 → ENRESERV 17:30 → ENTRNSPT 19:12 → EDTRNSPT 19:32 → EDTRNSPTSTS 19:32 → 2NA 19:40 → CMPTRNSPT 19:49 → 2NA 06-18 09:00 → ENPENDDIS 06-20 09:33 → 2NA 06-20 13:00
PROVIDERS: Physician Assistant; Student in an Organized Health Care Education/Training Program
DX: J20.9 Acute bronchitis, unspecified (principal); G31.83 Neurocognitive disorder with Lewy bodies; F02.80 Dementia in other diseases classified elsewhere, unspecified severity, without behavioral disturbance, psychotic disturbance, mood disturbance, and anxiety; E78.5 Hyperlipidemia, unspecified; I10 Essential (primary) hypertension; H35.30 Unspecified macular degeneration; M19.90 Unspecified osteoarthritis, unspecified site; Z87.440 Personal history of urinary (tract) infections; Z91.81 History of falling; Z79.82 Long term (current) use of aspirin
CPT/HCPCS: 2NAP; 36592; 74177; 81001; 82436; 87040; 87070; 87086; 87804; 87804-59; 93005; 93010; 96361; 96374; 97110-GO; 97116-GO; 97161-GP; 97166-GO; 97530-GO; J0456; J0696; J1650; J7040

== ENCOUNTER 2017-10-15 21:03 | Inpatient (IN) | payer OTHER, MEDICARE ==
[~2017-10-15] VITALS: Ht 172.7 cm; Wt 93.0 kg
[~2017-10-15 21:03] MED LIST changes: +ASPIRIN325 M2 PO; +AZITHROMYCIN500 M3 PO; +CARBIDOPA-LEVO1 EAC7 PO; +CENTRAVITES 501 EACH PO; +EXELON1 EAC2 TOP; +MELATONIN5 M7 PO
[2017-10-15 21:30] LABS: ABSOLUTE BASOPHIL COUNT 0.1 /CUMM (0.0-0.2); ABSOLUTE EOSINOPHIL COUNT 0.1 /CUMM (0.0-0.7); ABSOLUTE GRANULOCYTE CT 9.7 /CUMM (1.4-6.5); ABSOLUTE LYMPH COUNT 1.5 /CUMM (1.2-3.4); ABSOLUTE MONOCYTE COUNT 1.1 /CUMM (0.10-0.60); BASOPHIL % 0.5 % (0.0-2.0); EOSINOPHIL % 0.9 % (0-5); GRANULOCYTE % 77.7 % (42.2-75.2); MEAN CORPUSCULAR HGB 30.7 PG (27.0-31.0); MEAN CORPUSCULAR HGB CONC 33.9 G/DL (33.0-37.0); MEAN CORPUSCULAR VOLUME 90.6 FL (80.0-94.0); MEAN PLATELET VOLUME 7.8 FL (7.4-10.4); PLATELET COUNT 216 /CUMM (130-400); RBC DISTRIBUTION WIDTH 14.1 % (11.5-14.5); RED BLOOD CELL CT 4.53 /CUMM (4.70-6.10); WHITE BLOOD CELL COUNT 12.5 /CUMM (4.8-10.8)
--- NOTE | 2017-10-15 22:20 | ED GENERAL ADULT ---
History of Present Illness General Chief Complaint: General Adult Stated Complaint: FEVER, PAIN ON L SIDE PER Source: patient, family, old records Exam Limitations: no limitations Vital Signs & Intake/Output Vital Signs & Intake/Output Vital Signs Date Time Temp Pulse Resp B/P B/P Pulse O2 O2 Flow FiO2 Mean Ox Delivery Rate 10/15 2346 99.2 76 20 123/63 94 Room Air 10/16 2215 99.2 10/16 2215 99.2 10/156 99.9 10/16 2107 99.9 98 18 128/79 95 Room Air ED Intake and Output 10/16 0000 10/15 1200 Intake Total 1000 Output Total Balance 1000 Intake, IV 1000 Intake, Oral 0 Patient 204 lb Weight Weight Reported by Patient Measurement Method Allergies Coded Allergies: tetanus toxoid, adsorbed (UNKNOWN 08/03/15) Reconcile Medications Aspirin (Aspirin*) 325 MG TABLET 1 TAB PO DAILY HEART HEALTH (Reported) Azithromycin 500 MG TABLET 500 MG PO DAILY bronchitis Carbidopa/Levodopa (Carbidopa-Levodopa 25-100 Tab) 25 MG-100 MG TABLET 1 TAB PO Q6 PARKINSONS (Reported) Melatonin 5 MG TABLET 1 MG PO AT BEDTIME PRN INSOMNIA Multivitamin W/Iron, Minerals (Centravites 50 Plus) 1 EACH TABLET 1 TAB PO DAILY VITAMIN (Reported) Rivastigmine (Exelon) 13.3 MG/24 HOUR PATCH.TD24 1 PAT TOP DAILY PARKINSONS ( Reported) Triage Note: PT TO TRIAGE WITH WHO STATES PT HAD A LEFT SIDE PAIN THIS MORNING AND DEVELOPED FEVER TONIGHT. TEMP IN TRIAGE 99.9. PT HX PARKINSONS. PER PT HAS HAD URINARY URGENCY. Triage Nurses Notes Reviewed? yes HPI: Patient brought in by his for evaluation of a fever of 101.4 and left lower quadrant pain. Patient has a history of Parkinson's as well as recurrent UTI which she's had twice in the past and then diverticulitis when she had a partial colectomy for quite a few years ago. Patient states the pain is a crampy pain in his left lower quadrant. There is no radiation. There are no aggravating or mitigating factors. He rates as mild on the pain scale. Patient was given 975 mg Tylenol upon arrival to the emergency department. (Arcenio GUZMAN,Stepan Velez) Past History Travel History Traveled to [place] past 21 day No Medical History Any Pertinent Medical History? see below for history Neurological: Parkinson's disease EENT: macular degeneration Cardiovascular: hypertension, hyperlipidemia Respiratory: NONE Gastrointestinal: diverticulitis Hepatic: NONE Renal: NONE Musculoskeletal: osteoarthritis Psychiatric: NONE Endocrine: NONE Blood Disorders: NONE Cancer(s): NONE HAZARDOUS MATERIALS HANDLER/Reproductive: NONE History of MRSA: No History of VRE: No History of CDIFF: No Surgical History Surgical History: COLON RESECTION Psychosocial History Who do you live with Significant Other Services at Home Nursing What is your primary language Hong Konger Tobacco Use: Never used ETOH Use: denies use Family History Hx Contributory? No (Arcenio GUZMAN,Stepan Velez) Review of Systems Review of Systems Constitutional: Reports: see HPI, chills, fever. EENTM: Reports: no symptoms. Respiratory: Reports: no symptoms. Cardiovascular: Reports: no symptoms. GI: Reports: see HPI, abdominal pain. Genitourinary: Reports: no symptoms. Musculoskeletal: Reports: no symptoms. Skin: Reports: no symptoms. Neurological/Psychological: Reports: no symptoms. Hematologic/Endocrine: Reports: no symptoms. Immunologic/Allergic: Reports: no symptoms. All Other Systems: Reviewed and Negative (Arcenio GUZMAN,Stepan Velez) Physical Exam Physical Exam General Appearance: well developed/nourished, alert, awake, mild distress Head: atraumatic, normal appearance Eyes: Bilateral: PERRL, EOMI. Ears, Nose, Throat: normal pharynx, normal ENT inspection, hearing grossly normal Neck: normal inspection, supple, full range of motion Respiratory: normal breath sounds, chest non-tender, no respiratory distress, lungs clear Cardiovascular: regular rate/rhythm, normal peripheral pulses Gastrointestinal: normal bowel sounds, soft, no organomegaly, tenderness (LLQ), NO GUARDING OR REBOUND Back: normal inspection, normal range of motion Extremities: normal inspection, normal capillary refill, no edema Neurologic/Psych: awake, alert, oriented x 3 Lymphatic: no anterior cervical kajal Core Measures ACS in differential dx? No CVA/TIA Diagnosis: No Sepsis Present: Yes Sepsis Focused Exam Completed? Yes (Arcenio GUZMAN,Stepan Velez) ED Sepsis Exam Date of Focused Sepsis Exam: 10/15/17 Time of Focused Sepsis Exam: 2226 Sepsis Cardiac Exam: Regular Rate/Rhythm Sepsis Resp Exam: CTA Sepsis Cap Refill Exam: <2 Sec Sepsis Peripheral Pulse Exam: Normal Sepsis Peripheral Pulse Location: Radial Sepsis Skin Color Exam: Normal for Ethnicity Skin Temp/Moisture Exam: Warm/Dry (Arcenio GUZMAN,Stepan Velez) Progress Differential Diagnoses I considered the following diagnoses in my evaluation of the patient: [Sepsis, pneumonia, UTI, diverticulitis] Plan of Care: Orders Procedure Date/time Status Clear Liquid Diet 10/16 B Active Patient Data 10/16 105 Active Saline Lock 10/17 103 Active Misc Message 10/17 103 Active ED Holding Orders 10/17 103 Active Admit to inpatient 10/17 103 Active Vital Signs 10/17 103 Active Code Status 10/17 103 Active BLOOD CULTURE 10/16 2227 Active EKG 10/16 2227 Active Add-on Test (ER Only) 10/16 2219 Active Straight Cath 10/16 2219 Active LACTIC ACID 10/15 2124 Complete URINALYSIS 10/15 2108 Complete LIPASE 10/15 2108 Complete COMPREHENSIVE METABOLIC PANEL 10/15 2108 Complete CBC WITHOUT DIFFERENTIAL 10/15 2108 Complete Current Medications Sig/Ronald Start time Last Medication Dose Stop Time Status Admin Ampicillin Sodium/ 3,000 MG ONCE ONE 10/16 99 UNVr Sulbactam Sodium 10/16 128 (Unasyn) Sodium Chloride 100 ML (Normal Saline 0.9%) Laboratory Tests 10/16/17 0012: Urine Color YEL, Urine Clarity CLEAR, Urine pH 6.5, Ur Specific [place] <= 1.005 , Urine Protein NEG, Urine Ketones NEG, Urine Nitrite NEG, Urine Bilirubin NEG, Urine Urobilinogen 0.2, Ur Leukocyte Esterase NEG, Ur Microscopic EXAM NOT REQUIRED, Urine Hemoglobin NEG, Urine Glucose NEG 10/15/172124: Anion Gap 6, Estimated GFR > 60, BUN/Creatinine Ratio 18.0, Glucose 119 H, Lactic Acid 1.3, Calcium 8.9, Total Bilirubin 0.8, AST 18, ALT 21, Alkaline Phosphatase 57, Total Protein 6.6, Albumin 3.7, Globulin 2.9, Albumin/Globulin Ratio 1.3, Lipase 53, CBC w Diff NO MAN DIFF REQ, RBC 4.53 L, MCV 90.6, MCH 30.7, MCHC 33.9, RDW 14.1, MPV 7.8, Gran % 77.7 H, Lymphocytes % 12.1 L, Monocytes % 8.8, Eosinophils % 0.9, Basophils % 0.5, Absolute Granulocytes 9.7 H, Absolute Lymphocytes 1.5, Absolute Monocytes 1.1 H, Absolute Eosinophils 0.1 , Absolute Basophils 0.1 Microbiology 10/16 2219 BLOOD: Blood Culture - RECD 10/15 2124 BLOOD: Blood Culture - RECD Diagnostic Imaging: Viewed by Me: Radiology Read, CT Scan. Discussed w/RAD: Radiology Read, CT Scan. Initial ED EKG: PENDING Hand-Off Endorsed To: Justina GUZMAN,Lawrence Murillo Endorsed Time: 2300 Pending: CT, labs, Xray (Arcenio GUZMAN,Stepan Velez) Radiology Impression: PATIENT: EDDIE LEAVITT PRESENT AGE: 81 PATIENT ACCOUNT NO: [id number] : 36 LOCATION: [facility] ORDERING PHYSICIAN: Stepan Rg MD SERVICE DATE: 10/15/17 EXAM TYPE: CAT - CT ABD & PELVIS W IV CONTRAST EXAMINATION: CT ABDOMEN AND PELVIS WITH CONTRAST CLINICAL INFORMATION: Left lower quadrant pain. Fever. COMPARISON: CT abdomen pelvis 08/03/2015 TECHNIQUE: Multidetector volumetric imaging was performed of the abdomen and pelvis following IV administration of 95 mL of Optiray 320 intravenous contrast. Sagittal and coronal reformatted images were obtained on the technologist's workstation. DLP: 1176.2 x 1 mGy-cm FINDINGS: LUNG BASES: The visualized lung bases are unremarkable. LIVER, GALLBLADDER, AND BILIARY TREE: The liver is normal in size, shape, and attenuation. No focal hepatic lesion or biliary ductal dilatation is present. The gallbladder is contracted. Multiple small gallstones within the gallbladder. There is no bile duct dilatation. PANCREAS: Unremarkable. SPLEEN: Unremarkable. ADRENAL GLANDS: Unremarkable. KIDNEYS AND URETERS: The kidneys are normal in size, shape, and attenuation. No hydronephrosis, hydroureter, or calculi seen. No perinephric stranding. There is a 3.7 cm cortical cyst at the lateral upper pole of left kidney. There are parapelvic cysts in the kidneys bilateral. BLADDER: Unremarkable. GASTROINTESTINAL TRACT: There is marked diverticula of the left colon with scattered diverticula in the right colon. There is bowel wall thickening and pericolonic edema involving the mid to distal descending colon consistent with a diverticulitis. There is no abscess or evidence of perforation. There has been a prior partial sigmoidectomy with a surgical anastomosis of the proximal sigmoid. This bowel loop is dilated due to the prior surgery but there is no bowel wall thickening or obstruction. There is a large volume of stool in the colon. This is seen from the cecum through the pelvis. The appendix is normal. The small bowel loops are unremarkable. ABDOMINAL WALL: There are bilateral fat-containing inguinal hernias. This measures 3 cm on the left and 2 cm on the right in transverse dimension. LYMPH NODES: Normal. VASCULAR: There is vascular wall calcifications of the aorta and iliac arteries without aneurysm. PELVIC VISCERA: Prostate measures 6.2 cm transverse. OSSEOUS STRUCTURES: There is degenerative spondylosis spine with disc height narrowing and plate spurring and facet joint arthrosis. There is mild degenerative joint disease of hips bilateral. IMPRESSION: 1. Diverticulitis of the descending colon. 2. Contracted gallbladder with gallstones. No bile duct dilatation. DICTATED BY: Jordon Lopez MD DATE/TIME DICTATED:10/15/172335 GUARD IMMIGRATION :GARCIA DATE/TIME TRANSCRIBED:10/15/172335 CONFIDENTIAL, DO NOT COPY WITHOUT APPROPRIATE AUTHORIZATION. <Electronically signed in Other Vendor System> SIGNED BY: Jordon Lopez MD 10/15/172344 CXR Impression: PATIENT: EDDIE LEAVITT PRESENT AGE: 81 PATIENT ACCOUNT NO: [id number] : 36 LOCATION: [facility] ORDERING PHYSICIAN: Stepan Rg MD SERVICE DATE: 10/15/17 EXAM TYPE: RAD - XRY- PORTABLE CHEST XRAY EXAMINATION: XR PORTABLE CHEST CLINICAL INFORMATION: Fever. COMPARISON: Chest x-ray 01/07/2015 TECHNIQUE: Portable frontal view of the chest was obtained. 10:20 PM FINDINGS: No significant abnormality is noted involving the heart, lungs, mediastinum, bony thorax or soft tissues. IMPRESSION: No acute abnormality of the chest. DICTATED BY: Jordon Lopez MD DATE/TIME DICTATED:2252 GUARD IMMIGRATION:GARCIA DATE/TIME TRANSCRIBED:10/15/172252 CONFIDENTIAL, DO NOT COPY WITHOUT APPROPRIATE AUTHORIZATION. <Electronically signed in Other Vendor System> SIGNED BY: Jordon Lopez MD 10/15/172256 (Justina GUZMAN,Lawrence Murillo) Departure Departure Disposition: STILL A PATIENT Condition: Stable Referrals: Ryder Woody MD (PCP/Family) Departure Forms: Customer Survey General Discharge Information (Arcenio GUZMAN,Stepan Velez) Departure Clinical Impression Primary Impression: Fever Secondary Impressions: Diverticulitis, Sepsis Comments pt signed out to me, dr. lin 10/15/17, 11pm Admission Note Spoke With: Constantine Briones MD Documentation of Exam: Documentation of any treatments & extenuating circumstances including Concerns Regarding Discharge (functional status, medication knowledge or non-compliance, living conditions, etc.) that warrant an admission rather than observation: pt with diverticulitis, meets criteria for sepsis... 30 cc/kg unwarranted given volume status and concern about volume overload in 81 yo gentleman pt merits iv abx, iv fluids. gi consult in AM, consider surgical consult. (Justina GUZMAN,Lawrence Murillo) Critical Care Note Critical Care Note Critical Care Time: non-applicable (Arcenio GUZMAN,Stepan Velez)
--- NOTE | 2017-10-15 22:57 | RADIOLOGY REPORT ---
EXAMINATION: XR PORTABLE CHEST CLINICAL INFORMATION: Fever. COMPARISON: Chest x-ray 01/07/2015 TECHNIQUE: Portable frontal view of the chest was obtained. 10:20 PM FINDINGS: No significant abnormality is noted involving the heart, lungs, mediastinum, bony thorax or soft tissues. IMPRESSION: No acute abnormality of the chest.
--- NOTE | 2017-10-15 23:45 | CT SCAN REPORT ---
EXAMINATION: CT ABDOMEN AND PELVIS WITH CONTRAST CLINICAL INFORMATION: Left lower quadrant pain. Fever. COMPARISON: CT abdomen pelvis 08/03/2015 TECHNIQUE: Multidetector volumetric imaging was performed of the abdomen and pelvis following IV administration of 95 mL of Optiray 320 intravenous contrast. Sagittal and coronal reformatted images were obtained on the technologist's workstation. DLP: 1176.2 x 1 mGy-cm FINDINGS: LUNG BASES: The visualized lung bases are unremarkable. LIVER, GALLBLADDER, AND BILIARY TREE: The liver is normal in size, shape, and attenuation. No focal hepatic lesion or biliary ductal dilatation is present. The gallbladder is contracted. Multiple small gallstones within the gallbladder. There is no bile duct dilatation. PANCREAS: Unremarkable. SPLEEN: Unremarkable. ADRENAL GLANDS: Unremarkable. KIDNEYS AND URETERS: The kidneys are normal in size, shape, and attenuation. No hydronephrosis, hydroureter, or calculi seen. No perinephric stranding. There is a 3.7 cm cortical cyst at the lateral upper pole of left kidney. There are parapelvic cysts in the kidneys bilateral. BLADDER: Unremarkable. GASTROINTESTINAL TRACT: There is marked diverticula of the left colon with scattered diverticula in the right colon. There is bowel wall thickening and pericolonic edema involving the mid to distal descending colon consistent with a diverticulitis. There is no abscess or evidence of perforation. There has been a prior partial sigmoidectomy with a surgical anastomosis of the proximal sigmoid. This bowel loop is dilated due to the prior surgery but there is no bowel wall thickening or obstruction. There is a large volume of stool in the colon. This is seen from the cecum through the pelvis. The appendix is normal. The small bowel loops are unremarkable. ABDOMINAL WALL: There are bilateral fat-containing inguinal hernias. This measures 3 cm on the left and 2 cm on the right in transverse dimension. LYMPH NODES: Normal. VASCULAR: There is vascular wall calcifications of the aorta and iliac arteries without aneurysm. PELVIC VISCERA: Prostate measures 6.2 cm transverse. OSSEOUS STRUCTURES: There is degenerative spondylosis spine with disc height narrowing and plate spurring and facet joint arthrosis. There is mild degenerative joint disease of hips bilateral. IMPRESSION: 1. Diverticulitis of the descending colon. 2. Contracted gallbladder with gallstones. No bile duct dilatation.
--- NOTE | 2017-10-16 01:08 | History & Physical ---
Kina Crook 10/16/17 0108: General Information and HPI MD Statement: I have seen and personally examined EDDIE LEAVITT and documented this H&P. The patient is a 81 year old M who presented with a patient stated chief complaint of [pain abdomen]. Source of Information: patient Exam Limitations: no limitations History of Present Illness: 81-year-old male with a past medical history significant for Parkinson's disease ,, hyperlipidemia, hypertension, macular degeneration, diverticulitis, partial sigmoidectomy with a surgical anastomosis, presented to the emergency department at the [facility] for evaluation of left sided abdominal/flank pain 1 day. Patient reports that the night before he started having left-sided abdominal pain. The pain was dull and 5/10 in intensity it was off and on. He did not take any medications to relieve the pain. No aggravating or relieving factors known Patient denies nausea, vomiting, fever, chills, diarrhea, constipation, recent travels, sick contacts, change in diet, chills ears, myalgia, loss of appetite,, chest pain, dysuria, urgency, frequency. reports fever of 101.4. It was associated with chills. Allergies/Medications Allergies: Coded Allergies: tetanus toxoid, adsorbed (UNKNOWN 08/03/15) Past History Travel History Traveled to [place] past 21 day No Medical History Neurological: Parkinson's disease EENT: macular degeneration Cardiovascular: hypertension, hyperlipidemia Respiratory: NONE Gastrointestinal: diverticulitis Hepatic: NONE Renal: NONE Musculoskeletal: osteoarthritis Psychiatric: NONE Endocrine: NONE Blood Disorders: NONE Cancer(s): NONE PERSONNEL DIRECTOR/Reproductive: NONE History of MRSA: No History of VRE: No History of CDIFF: No Surgical History Surgical History: COLON RESECTION Past Family/Social History Psychosocial History Where do you live? Home Who Do You Live With? spouse Services at Home: Nursing Primary Language: Kinyarwanda Smoking Status: Former Smoker (1 PPD for 20 years) ETOH Use: denies use Illicit Drug Use: denies illicit drug use Functional Ability ADLs Needs Assist: eating. Ambulation: walker IADLs Needs Assist: shopping, housework, finances, food prep, transportation, medication admin. Review of Systems Review of Systems Constitutional: Reports: see HPI. EENTM: Reports: no symptoms. Cardiovascular: Reports: no symptoms. Respiratory: Reports: no symptoms. GI: Reports: no symptoms. Genitourinary: Reports: no symptoms. Musculoskeletal: Reports: no symptoms. Skin: Reports: no symptoms. Neurological/Psychological: Reports: no symptoms. Hematologic/Endocrine: Reports: no symptoms. Immunologic/Allergic: Reports: no symptoms. All Other Systems: Reviewed and Negative Exam & Diagnostic Data Last 24 Hrs of Vital Signs/I&O Vital Signs Date Time Temp Pulse Resp B/P B/P Pulse O2 O2 Flow FiO2 Mean Ox Delivery Rate 10/16 0109 98.9 65 20 152/74 95 Room Air 10/15 2346 99.2 76 20 123/63 94 Room Air 10/15 2216 99.2 10/15 2216 99.2 10/15 2116 99.9 10/15 2108 99.9 98 18 128/79 95 Room Air Intake & Output 10/16 0800 10/16 0000 10/15 1600 Intake Total 1000 Output Total Balance 1000 Intake, IV 1000 Intake, Oral 0 Patient 204 lb Weight Weight Reported by Patient Measurement Method Physical Exam General Appearance Alert, Oriented X3, Cooperative, No Acute Distress Skin No Rashes, No Breakdown, No Significant Lesion Skin Temp/Moisture Exam: Cool/Dry Sepsis Skin Exam (color): Normal for Ethnicity HEENT Atraumatic, PERRLA, EOMI, Mucous Membr. moist/pink Neck Supple, No JVD, No thryomegaly Cardiovascular Regular Rate, Normal S1, Normal S2, No Murmurs Lungs Clear to Auscultation, Normal Air Movement Abdomen Normal Bowel Sounds, Soft, No Tenderness, No Hepatospenomegaly, No Masses Neurological Normal Speech, Strength at 5/5 X4 Ext, Normal Tone, Sensation Intact, Cranial Nerves 3-12 NL Extremities No Clubbing, No Cyanosis, No Edema, Normal Pulses, No Tenderness/ Swelling Vascular Normal Pulses, Pulses Symmetrical Assessment/Plan Assessment: 81-year-old male with a past medical history significant for Parkinson's disease ,, hyperlipidemia, hypertension, macular degeneration, diverticulitis presented to the emergency department at the [facility] for evaluation of left sided abdominal pain 1 day. Vitals on admission: Temperature 99.2, pulse 76, respiratory rate 20, blood pressure 123/63, 94% on room air. Labs on admission: WBC 12.5, RBC 4.53, hemoglobin 13.9, hematocrit 41, granulocytes 77.7, lymphocytes 12.1, absolute granulocytes 9.7 Chest x-ray: New acute abnormality seen CT abdomen: diverticulitis of the descending colon, contracted gallbladder with gallstones, no bile duct dilatation. There is imaging evidence of a prior partial sigmoidectomy with surgical anastomosis of the proximal sigmoid. Problems: #Sepsis #Acute uncomplicated diverticulitis #Parkinson's disease #Hypertension #Hyperlipidemia Assessment and plan: 1. Sepsis due to acute uncomplicated diverticulitis: The patient presents with left-sided flank pain. His white cell count is 12.5 at 77.7% granulocytes. He has a T-max of 101.4 at home. Thus he meets SIRS criteria for sepsis. CT abdomen shows diverticulitis of the descending colon, contracted gallbladder with gallstones, no bile duct dilatation. There is imaging evidence of a prior partial sigmoidectomy with surgical anastomosis of the proximal sigmoid. -Admit to general medicine floor -Continue IV fluids -Continue pain medications for pain control. IV Tylenol -Continue monitoring vitals every shift -Start IV antibiotics IV ceftriaxone 1000 mg daily and IV metronidazole 500 mg q. 8 -Keep n.p.o. unless improvement in clinical status -Follow blood cultures 2 -Consider colonoscopy in 6-8 weeks based on GI recommendations 2. Hypertension Stable 3. Parkinson's disease Continue carbidopa levodopa po Continue rivastigmine patch DVT prophylaxis: subcu heparin 5000 units Diet: N.p.o. CODE STATUS: Full code As Ranked By This Provider Problem List: 1. Sepsis 2. Diverticulitis 3. Fever 4. Parkinsons disease Core Measures/Misc (11/04) Acute Coronary Syndrome ACS Diagnosis: No Congestive Heart Failure Congestive Heart Failure Diagnosis No Cerebrovascular Accident CVA/TIA Diagnosis: No VTE (View Protocol) VTE Risk Factors Age>40 No Mechanical VTE Prophylaxis d/t N/A MechProphylax Ordered No VTE Pharm Prophylaxis d/t NA PharmProphylax ordered Sepsis (View protocol) Sepsis Present: Yes If YES complete Sepsis Event Note If YES complete Sepsis Event Note Constantine Briones MD 10/16/17 0134: Core Measures/Misc (11/04) Sepsis (View protocol) If YES complete Sepsis Event Note If YES complete Sepsis Event Note Attending MD Review Statement Attending Statement Attending MD Statement: examined this patient, discuss w/resident/PA/TALENT CONSULTANT, agreed w/resident/PA/TALENT CONSULTANT, reviewed EMR data (avail) Attending Assessment/Plan: 81M PMH diverticulitis with colon resection, recurrent UTIs, multiple falls, Parkinsonism with dementia presenting with 2 days of fever and LLQ pain, found to be febrile 101.4 in ED. LLQ is constant, moderate, non-radiating. He denies chills, chest pain, SOB, flank pain, diarrhea, constipation, dysuria, bloody stool. He is abdomen is soft, +LLQ tenderness, no rebound or guarding. Found to have WBC 12, CT showing acute diverticulitis. Will admit to medicine, Ceftriaxone and Flagyl, NPO for now and advance diet as tolerated, pain control, continue home medications, DVT PPx. Cesar Mejia 10/16/17 0226: General Information and HPI Allergies/Medications Home Med list Aspirin (Aspirin*) 325 MG TABLET 1 TAB PO DAILY HEART HEALTH (Reported) Carbidopa/Levodopa (Carbidopa-Levodopa 25-100 Tab) 25 MG-100 MG TABLET 1 TAB PO Q6 PARKINSONS (Reported) Melatonin 5 MG TABLET 1 MG PO AT BEDTIME PRN INSOMNIA Multivitamin W/Iron, Minerals (Centravites 50 Plus) 1 EACH TABLET 1 TAB PO DAILY VITAMIN (Reported) Rivastigmine (Exelon) 13.3 MG/24 HOUR PATCH.TD24 1 PAT TOP DAILY PARKINSONS ( Reported) Core Measures/Misc (11/04) Sepsis (View protocol) If YES complete Sepsis Event Note If YES complete Sepsis Event Note Resident Review Statement Resident Statement: examined this patient, discussed with actuarial internship, agreed with actuarial internship, discussed with family, reviewed EMR data (avail), discussed with nursing , discussed with case mgmt, reviewed images, amended to note Other Findings: This is 81-year-old male with past medical significant for Parkinson's disease, insomnia, recurrent UTIs, diverticulitis with colon resection partial colectomy, multiple falls presented to the hospital with chief complaint of fever and lower abdominal pain for 2 days. Patient was brought in to the emergency room by his with chief concern of abdominal pain started 2 days prior to the arrival. Patient reports left lower quadrant pain, 8 out of 10, stabbing, nonradiating. Denies any nausea, vomiting , constipation or diarrhea. Denied any blood in stools. He was found to have temperature 101.4 in the emergency room. He has prior history of diverticulitis status post partial colectomy was done in 2011. He was last admitted to [facility] in June 2017 for fall and bronchitis. On review of systems he denied any nausea, vomiting, constipation or diarrhea, chest pain, short of breath, palpitations, recent travel history or sick contact exposure. Quit smoking 40 years ago. Denies alcohol abuse or illicit drug abuse Vitals afebrile, heart rate 98, respiratory rate 18, blood pressure 128/79, saturating at 95 on room air Labs WBC 12.5, hemoglobin 13 and hematocrit 41, platelets 216 Urine analysis in normal limit Sodium 135, potassium 4.5, BUN 18 creatinine 1, glucose 119 Lactic acid 1.3 Chest x-ray was within normal limits CT abdomen 1. Diverticulitis of the descending colon. 2. Contracted gallbladder with gallstones. No bile duct dilatation.. 1. Acute uncomplicated diverticulitis Patient presented with worsening left lower quadrant pain and fever to 101.4. He was found to have tachycardia and leukocytosis 12.5 in the emergency room. He fulfills SIRS criteria with temperature and leukocytosis. Source of infection was diverticulitis. CAT scan abdomen conformed diverticulitis of the ascending colon. * Admit to general medicine * Monitor vitals every shift * Monitor for fever, leukocytosis * Given his septic picture, advanced age and comorbid situations with associated low oral intake patient may benefit inpatient admission for IV antibiotics for acute uncomplicated diverticulitis * Continue to monitor for signs and symptoms of bowel perforation, intestinal abscess, obstruction * Continue IV ceftriaxone and IV Flagyl * N.p.o. for now * Advance diet to high-fiber whenever pain subsides * Follow-up blood cultures 2 * IV fluids * Adequate pain management * Consider colonoscopy in 6-8 weeks based on gastro-recommendations Parkinsons disease * Continue Sinemet * Continue exelone patch Insomnia * Continue melatonin 5 mg at bedtime DVT prophylaxis subcu heparin Full code N.p.o. Pain pathway as above
[2017-10-16 06:06] LABS: ABSOLUTE BASOPHIL COUNT 0 /CUMM (0.0-0.2); ABSOLUTE EOSINOPHIL COUNT 0.2 /CUMM (0.0-0.7); ABSOLUTE GRANULOCYTE CT 9.3 /CUMM (1.4-6.5); ABSOLUTE LYMPH COUNT 1.3 /CUMM (1.2-3.4); BASOPHIL % 0.2 % (0.0-2.0); EOSINOPHIL % 1.3 % (0-5); GRANULOCYTE % 78.9 % (42.2-75.2); MEAN CORPUSCULAR HGB 30.9 PG (27.0-31.0); MEAN CORPUSCULAR HGB CONC 33.9 G/DL (33.0-37.0); MEAN CORPUSCULAR VOLUME 91.1 FL (80.0-94.0); MEAN PLATELET VOLUME 8.2 FL (7.4-10.4); PLATELET COUNT 168 /CUMM (130-400); RBC DISTRIBUTION WIDTH 14.2 % (11.5-14.5); RED BLOOD CELL CT 4.18 /CUMM (4.70-6.10); WHITE BLOOD CELL COUNT 11.8 /CUMM (4.8-10.8)
--- NOTE | 2017-10-16 06:56 | PN- Housestaff ---
See Addendum Subjective Follow-up For: Abdominal Pain Subjective: Patient seen and examined at bedside this morning in the ED. was not at bedside during my assessment. Patient had difficulty finding his words contributed to his Parkinsons disease. He was able to point out left lower quadrant pain to me. Patient currently NPO on IV fluids and antibiotics resting in bed. [place] villasenor catheter in place. Review of Systems Constitutional: Denies: see HPI. Objective Last 24 Hrs of Vital Signs/I&O Vital Signs Date Time Temp Pulse Resp B/P B/P Pulse O2 O2 Flow FiO2 Mean Ox Delivery Rate 10/16 0547 98.9 72 20 143/90 96 Room Air 10/16 0109 98.9 65 20 152/74 95 Room Air 10/15 2346 99.2 76 20 123/63 94 Room Air 10/15 221 99.2 10/15 221 99.2 10/16 2115 99.9 10/15 2108 99.9 98 18 128/79 95 Room Air Intake & Output 10/16 0800 10/16 0000 10/15 1600 Intake Total 220 1000 Output Total Balance 220 1000 Intake, IV 100 1000 Intake, Oral 120 0 Patient 204 lb Weight Weight Reported by Patient Measurement Method Physical Exam General Appearance: Alert, Cooperative, confused, difficulty speaking, difficulty speaking HEENT: EOMI, Mucous Membr. moist/pink Cardiovascular: Regular Rate, Normal S1, Normal S2 Lungs: Clear to Auscultation, Normal Air Movement Abdomen: Normal Bowel Sounds, No Masses, left lower quadrant pain on palpation Extremities: No Clubbing, No Cyanosis, No Edema Vascular: Normal Pulses, Pulses Symmetrical Current Medications: Current Medications Sig/Ronald Start time Last Medication Dose Route Stop Time Status Admin Acetaminophen 650 MG Q6P PRN 10/16 0145 AC PO Acetaminophen 1,000 MG Q6P PRN 10/16 0145 AC IV Acetaminophen 975 MG ONCE ONE 10/15 2114 DC 10/15 PO 10/15 Ampicillin Sodium/ 0 .STK-MED ONE 10/16 012 DC Sulbactam Sodium .ROUTE Ampicillin Sodium/ 3,000 MG ONCE ONE 10/16 0100 DC 10/16 Sulbactam Sodium IV 10/16 012 0136 Sodium Chloride 100 ML Aspirin 325 MG DAILY 10/16 09 AC 10/16 PO 0911 Carbidopa/Levodopa 1 TAB Q6 10/16 0600 AC 10/16 PO 0602 Ceftriaxone Sodium 0 .STK-MED ONE 10/16 0313 DC .ROUTE Ceftriaxone Sodium 1,000 MG DAILY 10/16 0230 AC 10/16 IV 0347 Dextrose/Sodium 1,000 ML Q13H 10/16 0900 AC 10/16 Chloride IV 0911 Heparin Sodium 5,000 UNIT Q8 10/16 0600 AC 10/16 (Porcine) SC 0602 Heparin Sodium 0 .STK-MED ONE 10/16 0359 DC (Porcine) .ROUTE Melatonin 5 MG AT BEDTIME PRN 10/16 0145 AC PO Metronidazole 500 MG Q8H 10/16 1200 AC N/A 1 UNIT IV Metronidazole 500 MG IQ8 10/16 0230 DC 10/16 N/A 1 UNIT IV 0347 Multivitamins 1 TAB DAILY 10/16 0900 AC 10/16 PO 0911 Non-Formulary 0 SEE ADMIN CRITERIA 10/16 014 UNV Medication ANY Oxycodone/ 1 TAB Q6P PRN 10/16 0145 AC Acetaminophen PO Sodium Chloride 1,000 ML Q13H 10/16 0145 DC 10/16 IV 10/16 1444 0252 Sodium Chloride 1,000 ML BOLUS ONE 10/15 2230 DC 10/15 IV 10/15 2329 2228 Last 24 Hrs of Lab/Evans Results Last 24 Hrs of Labs/Mics: Laboratory Tests 10/16/17 0549: Anion Gap 4 L, Estimated GFR > 60, BUN/Creatinine Ratio 21.4, CBC w Diff NO MAN DIFF REQ, RBC 4.18 L, MCV 91.1, MCH 30.9, MCHC 33.9, RDW 14.2, MPV 8.2, Gran % 78.9 H, Lymphocytes % 11.2 L, Monocytes % 8.4, Eosinophils % 1.3, Basophils % 0.2, Absolute Granulocytes 9.3 H, Absolute Lymphocytes 1.3, Absolute Monocytes 1.0 H, Absolute Eosinophils 0.2, Absolute Basophils 0 10/16/17 0012: Urine Color YEL, Urine Clarity CLEAR, Urine pH 6.5, Ur Specific [place] <= 1.005 , Urine Protein NEG, Urine Ketones NEG, Urine Nitrite NEG, Urine Bilirubin NEG, Urine Urobilinogen 0.2, Ur Leukocyte Esterase NEG, Ur Microscopic EXAM NOT REQUIRED, Urine Hemoglobin NEG, Urine Glucose NEG 10/15/172124: Anion Gap 6, Estimated GFR > 60, BUN/Creatinine Ratio 18.0, Glucose 119 H, Lactic Acid 1.3, Calcium 8.9, Total Bilirubin 0.8, AST 18, ALT 21, Alkaline Phosphatase 57, Total Protein 6.6, Albumin 3.7, Globulin 2.9, Albumin/Globulin Ratio 1.3, Lipase 53, CBC w Diff NO MAN DIFF REQ, RBC 4.53 L, MCV 90.6, MCH 30.7, MCHC 33.9, RDW 14.1, MPV 7.8, Gran % 77.7 H, Lymphocytes % 12.1 L, Monocytes % 8.8, Eosinophils % 0.9, Basophils % 0.5, Absolute Granulocytes 9.7 H, Absolute Lymphocytes 1.5, Absolute Monocytes 1.1 H, Absolute Eosinophils 0.1 , Absolute Basophils 0.1 Microbiology 10/16 2219 BLOOD: Blood Culture - RECD 10/15 2124 BLOOD: Blood Culture - RECD Assessment/Plan Assessment: This is 81-year-old male with past medical significant for Parkinson's disease, insomnia, recurrent UTIs, diverticulitis with colon resection partial colectomy, multiple falls presented to the hospital with chief complaint of fever and lower abdominal pain for 2 days prior to admission. Pain is left lower quadrant, stabbing and nonradiating. Temperature of 101.4 undocumented, highest documented was 99.9. Prior history of diverticulitis status post partial colectomy in 2011. CXR: normal CT abdomen 1. Diverticulitis of the descending colon. 2. Contracted gallbladder with gallstones. No bile duct dilatation ED: 975mg Tylenol on arival; 1X bolus PROBLEM LIST: 1. Acute Uncomplicated Diverticulitis 2. Parkinsons Disease 3. Insomnia WBC trending down to 11.8 from 12.5. Was able to speak to at bedside since patient is unable to properly speak and give history. claims patient had [employer] food saturday that contained sesame seeds and corn on the cob recently which she attributes to possibly be a cause of the diverticulitis flare up. Acute Diverticulitis Patient presented with left lower quadrant pain. He was found to have tachycardia and leukocytosis 12.5 in the emergency room that is now down to 11.8. Source of infection was diverticulitis. CAT scan abdomen conformed diverticulitis of the descending colon. * IV Ceftriaxone and IV FLagyl * Keep patient NPO for now * Advance diet to high-fiber when pain subsides * Follow up blood cultures x 2 * IV Fluids: D5 NS @ 75/hr * Pain Management: IV Tylenol/ORAL; Percocet 1 tab q6PRN Parkinsons disease * Continue Sinemet * Continue exelone patch Insomnia * Continue melatonin 5 mg at bedtime DVT prophylaxis subcu heparin Full code N.p.o. Problem List: 1. Diverticulitis 2. Parkinsons disease Pain Ratin Pain Location: LLQ abdomen Pain Goal: Pain 4 or less Pain Plan: as per pain pathway Tomorrow's Labs & Rationales: cbc bep
[2017-10-16 07:30] VITALS: BP 133/64
[2017-10-16 14:01] VITALS: BP 133/61
[2017-10-16 16:29] VITALS: BP 167/74
[2017-10-16 18:56] VITALS: BP 158/74
[2017-10-16 23:03] VITALS: BP 140/72
[2017-10-17 06:29] VITALS: BP 144/82
--- NOTE | 2017-10-17 07:07 | PN- Housestaff ---
Tuan Hebert 10/17/17 0707: Subjective Follow-up For: Abdominal Pain/Diverticulitis Subjective: Patient seen and examined at bedside. Claims he feels much better. He was however agitated overnight and was put on dillon that was removed this morning. Patient tolerating clears well and will advance diet as tolerated. He denies any fevers, chills, nausea, vomiting. Day 2 IV antibiotics. Review of Systems Constitutional: Denies: see HPI. Objective Last 24 Hrs of Vital Signs/I&O Vital Signs Date Time Temp Pulse Resp B/P B/P Pulse O2 O2 Flow FiO2 Mean Ox Delivery Rate 10/17 06 98.4 77 20 144/82 95 10/16 2303 99.3 68 20 140/72 94 Room Air 10/16 1856 98.1 87 16 158/74 95 Room Air 10/16 1629 98.3 75 18 167/74 97 Room Air 10/16 1401 98.2 70 16 133/61 95 Room Air Intake & Output 10/17 1600 10/17 0800 10/17 0000 Intake Total 840 540 Output Total Balance 840 540 Intake, IV 600 300 Intake, Oral 240 240 Patient 205 lb Weight Physical Exam General Appearance: Alert, Oriented X3, Cooperative Skin: No Rashes, No Breakdown Skin Temp/Moisture Exam: Warm/Dry HEENT: PERRLA, EOMI, Mucous Membr. moist/pink Cardiovascular: Regular Rate, Normal S1, Normal S2 Lungs: Clear to Auscultation, Normal Air Movement Abdomen: left lower quadrant pain on palpation normal bowel sounds Extremities: No Clubbing, No Cyanosis, No Edema Vascular: Normal Pulses, Pulses Symmetrical Current Medications: Current Medications Sig/Ronald Start time Last Medication Dose Route Stop Time Status Admin Acetaminophen 650 MG Q6P PRN 10/16 0145 AC PO Acetaminophen 1,000 MG Q6P PRN 10/16 0145 AC IV Aspirin 325 MG DAILY 10/16 09 AC 10/17 PO 0930 Carbidopa/Levodopa 1 TAB Q6 10/16 06 AC 10/17 PO 1228 Ceftriaxone Sodium 1,000 MG DAILY 10/16 0230 AC 10/17 IV 0930 Dextrose/Sodium 1,000 ML Q13H 10/16 899 AC 10/16 Chloride IV 2137 Heparin Sodium 5,000 UNIT Q8 10/16 06 AC 10/17 (Porcine) SC 0627 Melatonin 5 MG AT BEDTIME PRN 10/16 0145 AC PO Metronidazole 500 MG Q8H 10/16 1200 AC 10/17 N/A 1 UNIT IV 1228 Multivitamins 1 TAB DAILY 10/16 0900 AC 10/17 PO 0930 Non-Formulary 0 SEE ADMIN CRITERIA 10/16 014 CAN Medication ANY Oxycodone/ 1 TAB Q6P PRN 10/16 0145 AC Acetaminophen PO Rivastigmine 9.5 MG 1800 10/17 1800 AC TOP Rivastigmine 9.5 MG DAILY 10/16 1813 DC 10/16 TOP 1830 Last 24 Hrs of Lab/Evans Results Last 24 Hrs of Labs/Mics: Laboratory Tests 10/17/17 0645: Anion Gap 5, Estimated GFR > 60, BUN/Creatinine Ratio 11.4, CBC w Diff NO MAN DIFF REQ, RBC 4.29 L, MCV 90.0, MCH 30.9, MCHC 34.3, RDW 13.9, MPV 8.9, Gran % 76.0 H, Lymphocytes % 13.8 L, Monocytes % 8.5, Eosinophils % 1.4, Basophils % 0.3, Absolute Granulocytes 7.5 H, Absolute Lymphocytes 1.4, Absolute Monocytes 0.8 H, Absolute Eosinophils 0.1, Absolute Basophils 0 Assessment/Plan Assessment: This is 81-year-old male with past medical significant for Parkinson's disease, insomnia, recurrent UTIs, diverticulitis with colon resection partial colectomy, multiple falls presented to the hospital with chief complaint of fever and lower abdominal pain for 2 days prior to admission. Pain is left lower quadrant, stabbing and nonradiating. Temperature of 101.4 undocumented, highest documented was 99.9. Prior history of diverticulitis status post partial colectomy in 2011. 10/17: Patient continuing to improve. Claims his pain is better and he is on Day 2 IV antibiotics. Patient denies any fevers, chills, nausea or vomiting. He was agitated overnight and put on dillon. Currently off and doing well. Tolerating clears will advance diet as tolerated. PROBLEM LIST: 1. Acute Uncomplicated Diverticulitis 2. Parkinsons Disease 3. Insomnia Acute Diverticulitis * Day 2 IV Ceftriaxone and IV FLagyl * Clear liquids tolerating; advance diet as toleratedd * Follow up blood cultures x 2 * IV Fluids: D5 NS @ 75/hr * Pain Management: IV Tylenol/ORAL; Percocet 1 tab q6PRN Parkinsons disease * Continue Sinemet * Continue exelone patch Insomnia * Continue melatonin 5 mg at bedtime DVT prophylaxis subcu heparin Full code Clear Liquid Diets; advance diet as tolerated Problem List: 1. Diverticulitis Pain Ratin Pain Location: left lower quadrant Pain Goal: Pain 4 or less Pain Plan: as per pain pathway Tomorrow's Labs & Rationales: cbc carmelinap Feliberto Ramos MD 10/17/17 1708: Attending MD Review Statement Attending Statement Attending MD Statement: examined this patient, discuss w/resident/PA/PACK WORKER SUPERVISOR, agreed w/resident/PA/PACK WORKER SUPERVISOR, discussed with family, reviewed EMR data (avail), discussed with nursing, discussed with case mgmt, amended to note Attending Assessment/Plan: The patient was seen and discussed with house staff. Improved with decreased abdominal pain. Had some "sun downing" last pm, however back to baseline during day today. Will continue IV antibiotics and advance diet to full liquids.
[2017-10-17 08:36] LABS: ABSOLUTE BASOPHIL COUNT 0 /CUMM (0.0-0.2); ABSOLUTE EOSINOPHIL COUNT 0.1 /CUMM (0.0-0.7); ABSOLUTE GRANULOCYTE CT 7.5 /CUMM (1.4-6.5); ABSOLUTE LYMPH COUNT 1.4 /CUMM (1.2-3.4); ABSOLUTE MONOCYTE COUNT 0.8 /CUMM (0.10-0.60); BASOPHIL % 0.3 % (0.0-2.0); EOSINOPHIL % 1.4 % (0-5); HEMATOCRIT 38.6 % (42-52); MEAN CORPUSCULAR HGB 30.9 PG (27.0-31.0); MEAN CORPUSCULAR HGB CONC 34.3 G/DL (33.0-37.0); MEAN PLATELET VOLUME 8.9 FL (7.4-10.4); PLATELET COUNT 171 /CUMM (130-400); RBC DISTRIBUTION WIDTH 13.9 % (11.5-14.5); RED BLOOD CELL CT 4.29 /CUMM (4.70-6.10); WHITE BLOOD CELL COUNT 9.9 /CUMM (4.8-10.8)
[2017-10-17 14:05] VITALS: BP 100/60
[2017-10-17 22:10] VITALS: BP 140/60
[2017-10-18 06:42] VITALS: BP 138/72
--- NOTE | 2017-10-18 07:06 | PN- Housestaff ---
See Addendum Subjective Follow-up For: Diverticulitis Subjective: Patient seen and examined at bedside this morning. He had spiked a fever of 101 overnight and blood culutures were ordered. Patient agitated overnight and dillon restraints were put on. Catheter has been taken off since patient voiding fine. Patient on Day 3 IV Antibiotics. He claims he feels much better this morning with a 2/10 abdominal pain. Patient tolerating full liquid diet with IV fluids @ 75/hr. Will continue to advance diet, monitor for fevers and leukocytosis. He denies any nausea, vomiting, diarrhea. Review of Systems Constitutional: Denies: see HPI. Objective Last 24 Hrs of Vital Signs/I&O Vital Signs Date Time Temp Pulse Resp B/P B/P Pulse O2 O2 Flow FiO2 Mean Ox Delivery Rate 10/18 0642 97.7 68 20 138/72 96 10/18 0128 97.9 10/18 0120 97.9 10/17 2356 101.0 10/17 2210 98.1 84 20 140/60 96 Room Air 10/17 1405 97.7 79 20 100/60 94 Room Air Intake & Output 10/18 0800 10/18 0000 10/17 1600 Intake Total 540 1080 Output Total Balance 540 1080 Intake, IV 300 600 Intake, Oral 240 480 Number 0 Bowel Movements Patient 205 lb Weight Physical Exam General Appearance: Alert, Oriented X3, Cooperative Skin: No Rashes, No Breakdown HEENT: PERRLA, EOMI, Mucous Membr. moist/pink Cardiovascular: Regular Rate, Normal S1, Normal S2 Lungs: Clear to Auscultation, Normal Air Movement Abdomen: left lower abdominal tenderness on palpation; normal bowel sounds Extremities: No Clubbing, No Cyanosis, No Edema Vascular: Normal Pulses, Pulses Symmetrical Current Medications: Current Medications Sig/Ronald Start time Last Medication Dose Route Stop Time Status Admin Acetaminophen 650 MG Q6P PRN 10/16 0145 AC 10/17 PO 2356 Acetaminophen 1,000 MG Q6P PRN 10/16 0145 AC IV Aspirin 325 MG DAILY 10/16 09 AC 10/17 PO 0930 Carbidopa/Levodopa 1 TAB Q6 10/16 06 AC 10/18 PO 0531 Ceftriaxone Sodium 1,000 MG DAILY 10/16 0230 AC 10/17 IV 0930 Dextrose/Sodium 1,000 ML Q13H 10/16 899 AC 10/17 Chloride IV 1732 Heparin Sodium 5,000 UNIT Q8 10/16 0600 AC 10/18 (Porcine) SC 0531 Melatonin 5 MG AT BEDTIME PRN 10/16 0145 AC PO Metronidazole 500 MG Q8H 10/16 1200 AC 10/18 N/A 1 UNIT IV 0459 Multivitamins 1 TAB DAILY 10/16 0900 AC 10/17 PO 0930 Non-Formulary 0 SEE ADMIN CRITERIA 10/17 1600 CAN Medication ANY Oxycodone/ 1 TAB Q6P PRN 10/16 0145 AC Acetaminophen PO Patient Medication 1 ED ONE ONE 10/17 1530 DC 10/17 Teaching ED 10/17 1531 1732 Rivastigmine 13.3 MG DAILY 10/18 0900 AC TOP Rivastigmine 9.5 MG 1800 10/17 1800 CAN TOP Rivastigmine 9.5 MG DAILY 10/17 1615 AC 10/17 TOP 1732 Rivastigmine 4.6 MG ONCE ONE 10/17 1600 CAN TOP 10/17 1601 Rivastigmine 9.5 MG DAILY 10/16 1813 DC 10/16 TOP 1830 Last 24 Hrs of Lab/Evans Results Last 24 Hrs of Labs/Mics: Microbiology 10/18 0055 BLOOD: Blood Culture - RECD 10/18 0040 BLOOD: Blood Culture - RECD Assessment/Plan Assessment: This is 81-year-old male with past medical significant for Parkinson's disease, insomnia, recurrent UTIs, diverticulitis with colon resection partial colectomy, multiple falls presented to the hospital with chief complaint of fever and lower abdominal pain for 2 days prior to admission. Pain is left lower quadrant, stabbing and nonradiating. Temperature of 101.4 undocumented, highest documented was 99.9. Prior history of diverticulitis status post partial colectomy in 2011. 10/18 Patient fever overnight of 101.0 which has resolved to 97.7 this morning. Patient had sundowning last night and put on dillon again taken off this morning. No catheter as voiding fine. Patients diet now a full liquid. Day 3 IV Antibiotics. Pain 2/10 this morning. Will conitnue to advance diet and D/C fluids accordingly. PROBLEM LIST: 1. Acute Uncomplicated Diverticulitis 2. Parkinsons Disease 3. Insomnia Acute Diverticulitis * Day 3 IV Ceftriaxone and IV FLagyl * Full liquid diet - will continue to advance * Follow up blood cultures x 2 * Discontinue IV Fluids: D5 NS @ 75/hr - will discontinue given tolerating diet * Pain Management: IV Tylenol/ORAL; Percocet 1 tab q6PRN Parkinsons disease * Continue Sinemet * Continue exelone patch Insomnia * Continue melatonin 5 mg at bedtime DVT prophylaxis subcu heparin Full code Full liquid diet; advance diet as tolerated Problem List: 1. Diverticulitis Pain Ratin Pain Location: left lower quadrant pain Pain Goal: Pain 4 or less Pain Plan: as per pain pathway Tomorrow's Labs & Rationales: cbc bep
[2017-10-18 09:37] LABS: ABSOLUTE BASOPHIL COUNT 0 /CUMM (0.0-0.2); ABSOLUTE EOSINOPHIL COUNT 0.2 /CUMM (0.0-0.7); ABSOLUTE GRANULOCYTE CT 8.2 /CUMM (1.4-6.5); ABSOLUTE LYMPH COUNT 1.4 /CUMM (1.2-3.4); ABSOLUTE MONOCYTE COUNT 0.7 /CUMM (0.10-0.60); BASOPHIL % 0.4 % (0.0-2.0); EOSINOPHIL % 2.2 % (0-5); GRANULOCYTE % 77.7 % (42.2-75.2); HEMATOCRIT 39.6 % (42-52); MEAN CORPUSCULAR HGB 30.7 PG (27.0-31.0); MEAN CORPUSCULAR HGB CONC 33.7 G/DL (33.0-37.0); MEAN CORPUSCULAR VOLUME 91.1 FL (80.0-94.0); MEAN PLATELET VOLUME 9.4 FL (7.4-10.4); PLATELET COUNT 184 /CUMM (130-400); RBC DISTRIBUTION WIDTH 14.1 % (11.5-14.5); RED BLOOD CELL CT 4.35 /CUMM (4.70-6.10); WHITE BLOOD CELL COUNT 10.6 /CUMM (4.8-10.8)
[2017-10-18 13:42] VITALS: BP 100/60
--- NOTE | 2017-10-18 16:02 | Patient Discharge Instructions ---
Discharge Instructions General Discharge Information You were seen/treated for: Acute Diverticulitis Parkinsons Disease Special Instructions: Please follow up with your PCP within 1 week of discharge. Continue Oral Flagyl + Ciprofloxacin 500MG TWICE A DAY FOR 4 MORE DAYS WITH FOOD. Return to ED if worsening symptoms of abdominal pain, fevers, chills, nausea, vomiting, diarrhea, blood in stool Continue home medications accordingly. Acute Coronary Syndrome Inclusion Criteria At DC or during hospital stay patient has or had the following: ACS DIAGNOSIS No Discharge Core Measures Meds if any: Prescribed or Continued at Discharge Meds if any: NOT Prescribed or Continued at Discharge Congestive Heart Failure Inclusion Criteria At DC or during hospital stay patient has or had the following: CHF DIAGNOSIS No Discharge Core Measures Meds if any: Prescribed or Continued at Discharge Meds if any: NOT Prescribed or Continued at Discharge Cerebrovascular accident Inclusion Criteria At DC or during hospital stay patient has or had the following: CVA/TIA Diagnosis No Discharge Core Measures Meds if any: Prescribed or Continued at Discharge Meds if any: NOT Prescribed or Continued at Discharge Venous thromboembolism Inclusion Criteria VTE Diagnosis No VTE Type NONE VTE Confirmed by (Test) NONE Discharge Core Measures - Per Current guidelines, there needs to be overlap - treatment for the first 5 days of Warfarin therapy. - If discharged on Warfarin prior to 5 days of - overlap therapy, the patient will need to be - assessed for post discharge needs including - *Post discharge parental anticoagulation - *Warfarin and/or parental anticoagulation education - *Follow up date to check INR post discharge At least 5 days overlap therapy as Inpatient No Meds if any: Prescribed or Continued at Discharge Note: Overlap Therapy is Warfarin and Anticoagulant Meds if any: NOT Prescribed or Continued at Discharge
[2017-10-18 23:07] VITALS: BP 140/80
[2017-10-19 06:41] VITALS: BP 130/84
--- NOTE | 2017-10-19 08:00 | PN- Housestaff ---
See Addendum Subjective Follow-up For: Acute Diverticulitis Subjective: Patient seen and examined at bedside this morning with his daughter at bedside. He has been afebrile with normal vital signs on IV antibiotics for diverticulities. Patient has been tolerating full liquids and is off IV fluids. He has been transitioned to a normal diet. Abdominal pain 02/27 this morning with no nausea, vomiting, diarrhea, fevers chills reported. Review of Systems Constitutional: Denies: see HPI. Objective Last 24 Hrs of Vital Signs/I&O Vital Signs Date Time Temp Pulse Resp B/P B/P Pulse O2 O2 Flow FiO2 Mean Ox Delivery Rate 10/19 08 Room Air 10/19 0641 98.1 71 20 130/84 96 Room Air 10/18 2307 98.4 87 20 140/80 92 10/18 1730 98.8 10/18 1342 97.5 82 20 100/60 98 Room Air Intake & Output 10/19 1600 10/19 0800 10/19 0000 Intake Total 620 100 Output Total Balance 620 100 Intake, IV 500 100 Intake, Oral 120 Physical Exam General Appearance: Alert, Oriented X3, Cooperative, No Acute Distress HEENT: PERRLA, EOMI, Mucous Membr. moist/pink Cardiovascular: Regular Rate, Normal S1, Normal S2 Lungs: Clear to Auscultation, Normal Air Movement Abdomen: Normal Bowel Sounds, Soft, decreased tenderness to palpation; no masses appreciated Extremities: No Clubbing, No Cyanosis, No Edema Vascular: Normal Pulses, Pulses Symmetrical Assessment/Plan Assessment: This is 81-year-old male with past medical significant for Parkinson's disease, insomnia, recurrent UTIs, diverticulitis with colon resection partial colectomy, multiple falls presented to the hospital with chief complaint of fever and lower abdominal pain for 2 days prior to admission. Pain is left lower quadrant, stabbing and nonradiating. Temperature of 101.4 undocumented, highest documented was 99.9. Prior history of diverticulitis status post partial colectomy in 2011. 10/19: Patient afebrile this morning with decreased abdominal pain. Day 4 IV antibiotics. Plan is for 24 hour care when ready to go home most likely tomorrow with notice given to family membrer. PROBLEM LIST: 1. Acute Uncomplicated Diverticulitis 2. Parkinsons Disease 3. Insomnia Acute Diverticulitis * Day 4 IV Ceftriaxone and IV Flagyl * Regular Diet * Discontinued Fluids * Pain Management: IV Tylenol/ORAL; Percocet 1 tab q6PRN Parkinsons disease * Continue Sinemet * Continue exelone patch Insomnia * Continue melatonin 5 mg at bedtime DVT prophylaxis subcu heparin Regular Diet Full Code Problem List: 1. Diverticulitis Pain Ratin Pain Location: left lower abdominal Pain Goal: Pain 4 or less Pain Plan: as per pain pathway Tomorrow's Labs & Rationales: cbc
[2017-10-19 08:54] LABS: ABSOLUTE BASOPHIL COUNT 0.1 /CUMM (0.0-0.2); ABSOLUTE EOSINOPHIL COUNT 0.2 /CUMM (0.0-0.7); ABSOLUTE GRANULOCYTE CT 7.2 /CUMM (1.4-6.5); ABSOLUTE LYMPH COUNT 1.3 /CUMM (1.2-3.4); ABSOLUTE MONOCYTE COUNT 0.7 /CUMM (0.10-0.60); BASOPHIL % 0.6 % (0.0-2.0); EOSINOPHIL % 2.5 % (0-5); GRANULOCYTE % 76.2 % (42.2-75.2); HEMATOCRIT 39.8 % (42-52); MEAN CORPUSCULAR HGB 30.8 PG (27.0-31.0); MEAN CORPUSCULAR HGB CONC 33.5 G/DL (33.0-37.0); MEAN CORPUSCULAR VOLUME 91.9 FL (80.0-94.0); MEAN PLATELET VOLUME 9.2 FL (7.4-10.4); PLATELET COUNT 208 /CUMM (130-400); RBC DISTRIBUTION WIDTH 13.8 % (11.5-14.5); RED BLOOD CELL CT 4.33 /CUMM (4.70-6.10); WHITE BLOOD CELL COUNT 9.5 /CUMM (4.8-10.8)
[2017-10-19 13:38] VITALS: BP 100/70
[2017-10-19 21:31] VITALS: BP 140/80
[2017-10-20 07:09] VITALS: BP 124/74
--- NOTE | 2017-10-20 08:45 | PN- Housestaff ---
See Addendum Subjective Follow-up For: Diverticulitis Subjective: Patient seen and examined at bedside. Afebrile with no abdominal pain at this time. Tolerating regular diet. Patients at bedside. Advised that discharge will be tomorrow. Patient denies nausea, vomiting, diarrhea, fevers, chills. Review of Systems Constitutional: Denies: see HPI. Objective Last 24 Hrs of Vital Signs/I&O Vital Signs Date Time Temp Pulse Resp B/P B/P Pulse O2 O2 Flow FiO2 Mean Ox Delivery Rate 10/20 08 Room Air 10/20 0709 98.2 69 20 124/74 94 10/19 2131 98.0 71 20 140/80 97 10/19 1600 Room Air 10/19 1338 97.9 90 20 100/70 97 Room Air Intake & Output 10/20 1600 10/20 0800 10/20 0000 Intake Total 245 370 Output Total Balance 245 370 Intake, IV 125 130 Intake, Oral 120 240 Number 0 Bowel Movements Physical Exam General Appearance: Alert, Oriented X3, Cooperative HEENT: EOMI, Mucous Membr. moist/pink Cardiovascular: Regular Rate, Normal S1, Normal S2, No Murmurs Lungs: Clear to Auscultation, Normal Air Movement Abdomen: Normal Bowel Sounds, Soft, No Tenderness Neurological: Normal Gait, Normal Speech, Strength at 5/5 X4 Ext Extremities: No Cyanosis, No Edema Vascular: Normal Pulses Current Medications: Current Medications Sig/Ronald Start time Last Medication Dose Route Stop Time Status Admin Acetaminophen 650 MG Q6P PRN 10/16 0145 AC 10/17 PO 2356 Acetaminophen 1,000 MG Q6P PRN 10/16 014 AC IV Aspirin 325 MG DAILY 10/16 899 AC 10/20 PO 0756 Carbidopa/Levodopa 1 TAB Q6 10/16 599 AC 10/20 PO 1105 Ceftriaxone Sodium 1,000 MG DAILY 10/16 0230 DC 10/19 IV 0818 Heparin Sodium 5,000 UNIT Q8 10/16 599 AC 10/20 (Porcine) SC 0540 Melatonin 5 MG AT BEDTIME PRN 10/16 0145 AC 10/19 PO 2026 Metronidazole 500 MG Q8H 10/16 1200 DC 10/20 N/A 1 UNIT IV 1105 Multivitamins 1 TAB DAILY 10/16 899 AC 10/20 PO 0756 Oxycodone/ 1 TAB Q6P PRN 10/16 0145 AC Acetaminophen PO Rivastigmine 13.3 MG DAILY 10/18 0900 AC 10/20 TOP 0902 Last 24 Hrs of Lab/Evans Results Last 24 Hrs of Labs/Mics: Laboratory Tests 10/20/17 0952: CBC w Diff NO MAN DIFF REQ, RBC 4.19 L, MCV 91.2, MCH 31.2 H, MCHC 34.2, RDW 14.0, MPV 8.6, Gran % 77.7 H, Lymphocytes % 14.8 L, Monocytes % 4.3, Eosinophils % 2.7, Basophils % 0.5, Absolute Granulocytes 6.4, Absolute Lymphocytes 1.2, Absolute Monocytes 0.4, Absolute Eosinophils 0.2, Absolute Basophils 0 Assessment/Plan Assessment: This is 81-year-old male with past medical significant for Parkinson's disease, insomnia, recurrent UTIs, diverticulitis with colon resection partial colectomy, multiple falls presented to the hospital with chief complaint of fever and lower abdominal pain for 2 days prior to admission. Pain is left lower quadrant, stabbing and nonradiating. Temperature of 101.4 undocumented, highest documented was 99.9. Prior history of diverticulitis status post partial colectomy in 2011. 10/20: Patient afebrile this morning with decreased abdominal pain. Antibiotics discontinued. Plan is for 24 hour care when ready to go home most likely tomorrow with notice given to family memeber. PROBLEM LIST: 1. Acute Uncomplicated Diverticulitis 2. Parkinsons Disease 3. Insomnia Acute Diverticulitis * Completed antibiotic course of Flagyl/Cefriaxone * Regular Diet tolerated * Pain Management: IV Tylenol/ORAL; Percocet 1 tab q6PRN Parkinsons disease * Continue Sinemet * Continue exelone patch Insomnia * Continue melatonin 5 mg at bedtime DVT prophylaxis subcu heparin Regular Diet Full Code Problem List: 1. Diverticulitis Pain Ratin Pain Location: no pain today Pain Goal: Remain pain free Pain Plan: as per pain pathway Tomorrow's Labs & Rationales: None
[2017-10-20 10:15] LABS: ABSOLUTE BASOPHIL COUNT 0 /CUMM (0.0-0.2); ABSOLUTE EOSINOPHIL COUNT 0.2 /CUMM (0.0-0.7); ABSOLUTE GRANULOCYTE CT 6.4 /CUMM (1.4-6.5); ABSOLUTE LYMPH COUNT 1.2 /CUMM (1.2-3.4); ABSOLUTE MONOCYTE COUNT 0.4 /CUMM (0.10-0.60); BASOPHIL % 0.5 % (0.0-2.0); EOSINOPHIL % 2.7 % (0-5); GRANULOCYTE % 77.7 % (42.2-75.2); HEMATOCRIT 38.2 % (42-52); MEAN CORPUSCULAR HGB 31.2 PG (27.0-31.0); MEAN CORPUSCULAR HGB CONC 34.2 G/DL (33.0-37.0); MEAN CORPUSCULAR VOLUME 91.2 FL (80.0-94.0); MEAN PLATELET VOLUME 8.6 FL (7.4-10.4); PLATELET COUNT 233 /CUMM (130-400); RED BLOOD CELL CT 4.19 /CUMM (4.70-6.10); WHITE BLOOD CELL COUNT 8.3 /CUMM (4.8-10.8)
[2017-10-20 13:45] VITALS: BP 110/80
[2017-10-20 20:59] VITALS: BP 126/70
[2017-10-21 06:53] VITALS: BP 124/68
--- NOTE | 2017-10-21 10:04 | PN- Housestaff ---
Michele Flores 10/21/17 1004: Subjective Follow-up For: Diverticulitis Subjective: Patient seen and examineD this am. at bedside. Patient was seen ambulating with PT on the floors. He remains afebrile, complains only of slight pain in LLQ. He reports no other complains. He denies N/V, constipation. Review of Systems Constitutional: Reports: see HPI. Objective Last 24 Hrs of Vital Signs/I&O Vital Signs Date Time Temp Pulse Resp B/P B/P Pulse O2 O2 Flow FiO2 Mean Ox Delivery Rate 10/21 08 Room Air 10/21 0653 97.4 70 18 124/68 94 Room Air 10/20 2059 97.6 76 18 126/70 95 Room Air 10/20 1345 98.0 63 20 110/80 94 Room Air Intake & Output 10/21 1600 10/21 0800 10/21 0000 Intake Total 230 730 Output Total Balance 230 730 Intake, IV 130 130 Intake, Oral 100 600 Number 0 1 Bowel Movements Physical Exam General Appearance: Alert, Oriented X3, Cooperative, No Acute Distress HEENT: Atraumatic Neck: Supple Cardiovascular: Regular Rate, Normal S1, Normal S2, No Murmurs Lungs: Clear to Auscultation, Normal Air Movement Abdomen: Normal Bowel Sounds, Soft, No Tenderness Extremities: No Cyanosis, No Edema Current Medications: Current Medications Sig/Ronald Start time Last Medication Dose Route Stop Time Status Admin Acetaminophen 650 MG Q6P PRN 10/16 0145 AC 10/17 PO 2356 Acetaminophen 1,000 MG Q6P PRN 10/16 0145 AC IV Aspirin 325 MG DAILY 10/16 899 AC 10/21 PO 0917 Carbidopa/Levodopa 1 TAB Q6 10/16 0600 AC 10/21 PO 1121 Ceftriaxone Sodium 1,000 MG DAILY@1400 10/20 1400 AC 10/20 IV 1455 Heparin Sodium 5,000 UNIT Q8 10/16 06 AC 10/21 (Porcine) SC 0535 Melatonin 5 MG AT BEDTIME PRN 10/16 0145 AC 10/19 PO 2026 Metronidazole 500 MG Q8H 10/20 1900 AC 10/21 N/A 1 UNIT IV 1010 Metronidazole 500 MG Q8H 10/16 1200 DC 10/20 N/A 1 UNIT IV 1105 Multivitamins 1 TAB DAILY 10/16 09 AC 10/21 PO 0917 Oxycodone/ 1 TAB Q6P PRN 10/16 0145 AC Acetaminophen PO Rivastigmine 13.3 MG DAILY 10/18 899 AC 10/21 TOP 0917 Assessment/Plan Assessment: This is 81-year-old male with past medical significant for Parkinson's disease, insomnia, recurrent UTIs, diverticulitis with colon resection partial colectomy, multiple falls presented to the hospital with chief complaint of fever and lower abdominal pain for 2 days prior to admission. Pain is left lower quadrant, stabbing and nonradiating. Temperature of 101.4 undocumented, highest documented was 99.9. Prior history of diverticulitis status post partial colectomy in 2011. He was admitted to the [facility] floor for management of: #Acute Uncomplicated Diverticulitis #Parkinson's Disease #Insomnia #Acute Uncomplicated Diverticulitis On metronidazole and ceftriaxone. With plans to transition to PO. Only complains of mild RLQ pain that was not reproducible on physical examination. No issues with regular diet. -Will switch to PO antibiotics: cipro and metronidazole #Parkinson's Disease Stable - on sinemet and exelone patch. #Insomnia Melatonin 5 mg at bedtime. FULL CODE REG DIET DVT PPX Subq Heparin Problem List: 1. Diverticulitis Pain Ratin Pain Location: RLQ Pain Goal: Remain pain free Pain Plan: As indicated Tomorrow's Labs & Rationales: n/a Feliberto Ramos MD 10/21/17 1315: Attending MD Review Statement Attending Statement Attending MD Statement: examined this patient, discuss w/resident/PA/LICENSED PSYCHOLOGIST DIRECTOR, agreed w/resident/PA/LICENSED PSYCHOLOGIST DIRECTOR, discussed with family, reviewed EMR data (avail), amended to note Attending Assessment/Plan: The patient was seen and discussed with house staff. Only mild LLQ tenderness and tolerating solid diet. OK to change to po Cipro/Flagyl today (give with food ) and plan to arrange 24 hour home care for tomorrow.
[2017-10-21 14:45] VITALS: BP 126/76
[2017-10-21 21:50] VITALS: BP 140/78
[2017-10-22 06:33] VITALS: BP 140/86
--- NOTE | 2017-10-22 06:57 | PN- Housestaff ---
See Addendum Subjective Follow-up For: Acute Diverticulitis Subjective: Pt seen and examined at [facility]. He claims he has minimal abdominal pain. Reports no n/v, diarrhea overnight. Afebrile with normal vital signs. Tolerating PO Well. Transitioned to oral cipro/flagyl. Pending discharge today. Review of Systems Constitutional: Denies: see HPI. Objective Last 24 Hrs of Vital Signs/I&O Vital Signs Date Time Temp Pulse Resp B/P B/P Pulse O2 O2 Flow FiO2 Mean Ox Delivery Rate 10/22 0533 97.5 67 18 140/86 96 Room Air 10/21 2150 98.3 80 20 140/78 96 10/21 1445 97.6 66 18 126/76 96 Intake & Output 10/22 1600 10/22 0800 10/22 0000 Intake Total 100 100 Output Total Balance 100 100 Intake, Oral 100 100 Number 0 Bowel Movements Physical Exam General Appearance: Alert, Oriented X3, Cooperative, No Acute Distress Skin: No Rashes, No Breakdown HEENT: Mucous Membr. moist/pink Neck: No JVD, No thryomegaly Cardiovascular: Normal S1, Normal S2 Lungs: Clear to Auscultation, Normal Air Movement Abdomen: Normal Bowel Sounds, Soft, No Tenderness Extremities: No Clubbing, No Cyanosis, No Edema Vascular: Normal Pulses, Pulses Symmetrical Current Medications: Current Medications Sig/Ronald Start time Last Medication Dose Route Stop Time Status Admin Acetaminophen 650 MG Q6P PRN 10/16 0145 AC 10/17 PO 2356 Acetaminophen 1,000 MG Q6P PRN 10/16 0145 AC IV Aspirin 325 MG DAILY 10/16 899 AC 10/22 PO 0803 Carbidopa/Levodopa 1 TAB Q6 10/16 06 AC 10/22 PO 0613 Ceftriaxone Sodium 1,000 MG DAILY@1400 10/20 1400 DC 10/20 IV 1455 Ciprofloxacin 500 MG BID 10/21 2100 AC 10/22 PO 10/25 2059 0803 Heparin Sodium 5,000 UNIT Q8 10/16 599 AC 10/22 (Porcine) SC 06 Melatonin 5 MG AT BEDTIME PRN 10/16 0145 AC 10/21 PO 2024 Metronidazole 500 MG Q6 10/21 1800 AC 10/22 PO 06 Metronidazole 500 MG Q8H 10/20 1900 DC 10/21 N/A 1 UNIT IV 1010 Multivitamins 1 TAB DAILY 10/16 0900 AC 10/22 PO 0803 Oxycodone/ 1 TAB Q6P PRN 10/16 0145 AC Acetaminophen PO Rivastigmine 13.3 MG DAILY 10/18 0900 AC 10/22 TOP 0803 Assessment/Plan Assessment: This is 81-year-old male with past medical significant for Parkinson's disease, insomnia, recurrent UTIs, diverticulitis with colon resection partial colectomy, multiple falls presented to the hospital with chief complaint of fever and lower abdominal pain for 2 days prior to admission. Pain is left lower quadrant, stabbing and nonradiating. Temperature of 101.4 undocumented, highest documented was 99.9. Prior history of diverticulitis status post partial colectomy in 2011. He was admitted to the [facility] floor for management of: PROBLEM LIST: 1. Acute Uncomplicated Diverticulitis 2. Parkinson's Disease 3. Insomnia Acute Uncomplicated Diverticulitis On metronidazole and ceftriaxone. Transitioned to PO. Only complains of mild RLQ pain that was not reproducible on physical examination. No issues with regular diet. * PO antibiotics: cipro and metronidazole for discharge 500mg BID for 4 more days Parkinson's Disease * Stable - on sinemet and exelone patch. Insomnia * Melatonin 5 mg at bedtime. FULL CODE REG DIET DVT PPX Subq Heparin Problem List: 1. Diverticulitis 2. Parkinsons disease Pain Ratin Pain Location: LLQ abdominal pain Pain Goal: Remain pain free Pain Plan: as per pain pathway Tomorrow's Labs & Rationales: pending discharge
[2017-10-22] MEDS ORDERED: CIPROFLOXACIN500 M2 PO ×2 (08:59→09:42)
[2017-10-22] MEDS ORDERED: FLAGYL500 MG PO ×2 (08:59→09:42)
[2017-10-22 14:56] VITALS: BP 110/70
== END 2017-10-22 16:00 | disposition home health service (06) | DRG 392 ==
LOC: ERH 21:03 → 2NA 10-16 01:04 → ERHI 10-16 01:04 → ENRESERV 10-16 18:46 → ENTRNSPT 10-16 19:59 → EDTRNSPTSTS 10-16 20:02 → 2NA 10-16 20:06 → CMPTRNSPT 10-16 20:11 → 2NA 10-19 11:07 → ENPENDDIS 10-22 09:44 → ENTRNSPT 10-22 15:31 → EDTRNSPT 10-22 15:54 → EDTRNSPTSTS 10-22 15:54 → 2NA 10-22 16:00 → CMPTRNSPT 10-22 16:03
PROVIDERS: Hospitalist; Internal Medicine; Physical Medicine & Rehabilitation Pain Medicine
DX: K57.92 Diverticulitis of intestine, part unspecified, without perforation or abscess without bleeding (principal); G20 Parkinson's disease; R39.15 Urgency of urination; E78.5 Hyperlipidemia, unspecified; I10 Essential (primary) hypertension; H35.30 Unspecified macular degeneration; Z90.49 Acquired absence of other specified parts of digestive tract; Z88.7 Allergy status to serum and vaccine; Z87.891 Personal history of nicotine dependence; G47.00 Insomnia, unspecified
CPT/HCPCS: 2NASP; 36592; 71045; 74177; 81003; 82436; 87040; 93005; 93010; 96360; 97110-GO; 97116-GO; 97161-GP; 97530-GO; J0696; J1644; J7042